=== PATIENT | female | born 1945 | race Caucasian/White ===

== ENCOUNTER 2017-05-15 14:05 | Inpatient (IN) | payer MEDICARE, BC ==
[~2017-05-15] VITALS: Ht 172.7 cm; Wt 68.0 kg
[~2017-05-15 14:05] MED LIST: AMARYL1 MG PO; ASPIR-TRIN325 MG PO; BACTRIM SINGLE S1 EA ORAL; BENADRYL25 M1 PO; DIOVAN HCT 1601 EAC1 PO; DIOVAN HCT 1601 EACH PO; GLUCOPHAGE500 MG PO; JANUVIA100 MG PO; KLOR-CON 1010 MEQ PO; LASIX40 MG PO; LEXAPRO10 MG PO; PLAVIX75 MG PO; PREDNISONE10 M1 PO; SIMVASTATIN20 MG PO; SUCRALFATE1 GM PO; VALIUM2 MG PO
[2017-05-15] MEDS ORDERED: Sodium Chloride 500ML 500 ML IV ONE (14:26)
[2017-05-15 14:30] VITALS: BP 163/71
[2017-05-15] MEDS ORDERED: Morphine Sulfate 4mg/ml Inj IVP ONE ×3 (14:30→18:15)
[2017-05-15 15:23] LABS: EOSINOPHILS % (AUTO) 1.6 % (0.0-3.0); LYMPHOCYTES % (AUTO) 17.9 % (20.0-45.0); MEAN CORPUSCULAR HEMOGLOBIN 33.6 PG (27.0-31.0); MEAN CORPUSCULAR VOLUME 102 FL (80-99); MEAN PLATELET VOLUME 6.7 FL (6.5-10.1); MONOCYTES % (AUTO) 7.2 % (1.0-10.0); NEUTROPHILS % (AUTO) 72.3 % (45.0-75.0); PLATELET COUNT 213 K/UL (150-450); RED BLOOD COUNT 3.55 M/UL (4.20-5.40); RED CELL DISTRIBUTION WIDTH 13.7 % (11.6-14.8); WHITE BLOOD COUNT 9.1 K/UL (4.8-10.8)
[2017-05-15 15:43] LABS: ANION GAP 10 mmol/L (5-15); CALCIUM 9.4 MG/DL (8.5-10.1); CARBON DIOXIDE 27 MMOL/L (21-32); CHLORIDE 105 MMOL/L (98-107); CREATININE 1.7 MG/DL (0.55-1.30); POTASSIUM 4.4 MMOL/L (3.5-5.1); SODIUM 142 MMOL/L (136-145)
[2017-05-15 15:48] LABS: ALANINE AMINOTRANSFERASE 15 U/L (12-78); ALBUMIN/GLOBULIN RATIO 1.1 (1.0-2.7); ASPARTATE AMINO TRANSFERASE 16 U/L (15-37); LIPASE 279 U/L (73-393); TOTAL PROTEIN 6.8 G/DL (6.4-8.2)
--- NOTE | 2017-05-15 19:19 | Emergency Room Report ---
History of Present Illness General Chief Complaint: Pain Source: Patient, Medical Record Present Illness HPI 72-year-old female presents ED complaining of back pain. Started this morning. Brought in by EMS. Pain states the pain is sharp, 10 out of 10 localized to right lower back radiating to the front. Denies fevers or chills. Denies chest pain or shortness of breath. Denies nausea or vomiting. No other aggravating relieving factors. Denies any other associated symptoms Allergies: Coded Allergies: AMOXICILLIN (Verified Allergy, Unknown, 05/15/17) Patient History Past Medical History: DM, HTN Past Surgical History: none, pacemaker Pertinent Family History: none Social History: Denies: smoking, alcohol use, drug use Now: No Immunizations: UTD Reviewed Nursing Documentation: PMH: Agreed, PSxH: Agreed Nursing Documentation-PMH Past Medical History: No History, Except For Hx Cardiac Problems: Yes Hx Hypertension: Yes Hx Pacemaker: Yes Hx Diabetes: Yes Hx Gastrointestinal Problems: Yes - POLYPS, PARTIAL COLON REMOVED Hx Neurological Problems: Yes - vascular problem Review of Systems All Other Systems: negative except mentioned in HPI Physical Exam Vital Signs Date Time Temp Pulse Resp B/P (MAP) Pulse Ox O2 Delivery O2 Flow Rate FiO2 05/15/17 14:04 87 20 154/72 97 Room Air 05/15/17 14:30 97.8 Sp02 EP Interpretation: reviewed, normal General Appearance: alert, GCS 15, non-toxic, mild distress Head: normocephalic, atraumatic Eyes: bilateral eye normal inspection, bilateral eye PERRL ENT: hearing grossly normal, normal pharynx, no angioedema, normal voice Neck: full range of motion, supple/symm/no masses Respiratory: chest non-tender, lungs clear, normal breath sounds, speaking full sentences Cardiovascular #1: regular rate, rhythm, no edema Cardiovascular #2: 2+ carotid (R), 2+ carotid (L), 2+ radial (R), 2+ radial (L) , 2+ dorsalis pedis (R), 2+ dorsalis pedis (L) Gastrointestinal: normal bowel sounds, non tender, soft, non-distended, no guarding, no rebound Rectal: deferred Genitourinary: normal inspection, CVA tenderness (R) Musculoskeletal: back normal, gait/station normal, normal range of motion, non- tender Neurologic: alert, oriented x3, responsive, motor strength/tone normal, sensory intact, speech normal Psychiatric: judgement/insight normal, memory normal, mood/affect normal, no suicidal/homicidal ideation Reflexes: 3+ bicep (R), 3+ bicep (L), 3+ tricep (R), 3+ tricep (L), 3+ knee (R) , 3+ knee (L) Skin: normal color, no rash, warm/dry, well hydrated Lymphatic: no adenopathy Medical Decision Making Diagnostic Impression: Primary Impression: Pyelonephritis Additional Impression: Renal insufficiency ER Course Hospital Course 72-year-old M presents to ED with R flank pain Differential diagnosis includes-appendicitis, cholecystitis, kidney stone, pyelonephritis Clinical course Patient placed on stretcher. After initial history and physical I ordered labs , IV fluids, pain medications and CT scan Labs - no leukocytosis, Cr 1.7, LFTs normal Patient unable to provide urine, even with Jiménez catheter there is no urine production CT scan shows bilateral peripnephric stranding consistent with pyelonephritsi vs passed kidney stone Patient could be experiencing urinary retention due to pyelonephritis versus kidney stone Patient continues to have pain. Antibiotics given. IV fluids given Patient will be admitted to Dr Castaneda I feel this is a highly complex case requiring extensive working including EKG/ Rhythm strip, Xray/CT/US, Blood/urine lab work, repeat exams while in ED, and administration of strong opiates/narcotics for pain control, admission to hospital or close patient follow up. Diagnosis - pyelonephritis, renal insufficiency Admitted to floor in serious condition Labs Test 05/15/17 15:00 White Blood Count 9.1 K/UL (4.8-10.8) Red Blood Count 3.55 M/UL (4.20-5.40) Hemoglobin 11.9 G/DL (12.0-16.0) Hematocrit 36.2 % (37.0-47.0) Mean Corpuscular Volume 102 FL (80-99) Mean Corpuscular Hemoglobin 33.6 PG (27.0-31.0) Mean Corpuscular Hemoglobin Concent 33.0 G/DL (32.0-36.0) Red Cell Distribution Width 13.7 % (11.6-14.8) Platelet Count 213 K/UL (150-450) Mean Platelet Volume 6.7 FL (6.5-10.1) Neutrophils (%) (Auto) 72.3 % (45.0-75.0) Lymphocytes (%) (Auto) 17.9 % (20.0-45.0) Monocytes (%) (Auto) 7.2 % (1.0-10.0) Eosinophils (%) (Auto) 1.6 % (0.0-3.0) Basophils (%) (Auto) 1.0 % (0.0-2.0) Sodium Level 142 MMOL/L (136-145) Potassium Level 4.4 MMOL/L (3.5-5.1) Chloride Level 105 MMOL/L (98-107) Carbon Dioxide Level 27 MMOL/L (21-32) Anion Gap 10 mmol/L (5-15) Blood Urea Nitrogen 20 mg/dL (7-18) Creatinine 1.7 MG/DL (0.55-1.30) Estimat Glomerular Filtration Rate mL/min (>60) Glucose Level 157 MG/DL (74-106) Calcium Level 9.4 MG/DL (8.5-10.1) Total Bilirubin 0.5 MG/DL (0.2-1.0) Aspartate Amino Transf (AST/SGOT) 16 U/L (15-37) Alanine Aminotransferase (ALT/SGPT) 15 U/L (12-78) Alkaline Phosphatase 58 U/L (46-116) Total Protein 6.8 G/DL (6.4-8.2) Albumin 3.6 G/DL (3.4-5.0) Globulin 3.2 g/dL Albumin/Globulin Ratio 1.1 (1.0-2.7) Lipase 279 U/L (73-393) CT/MRI/US Diagnostic Results CT/MRI/US Diagnostic Results : Imaging Test Ordered: CT A/P Impression Bilateral perinephric stranding, edema is nonspecific and appears mildly greater on the right which may be due to recently passed stone or infection Last Vital Signs Date Time Temp Pulse Resp B/P (MAP) Pulse Ox O2 Delivery O2 Flow Rate FiO2 05/15/17 15:10 97.8 05/15/17 14:30 80 13 163/71 98 Room Air Status: improved Disposition: ADMITTED INPATIENT Condition: Serious Referrals: NOT CHOSEN IPA/,REFERRING (PCP) EHLDER MA M.D. May 15, 2017 19:19
[2017-05-15 20:50] VITALS: BP 127/68
[2017-05-15 22:15] VITALS: BP 144/84
[2017-05-15 22:50] VITALS: BP 144/84
[2017-05-16] MEDS: Morphine Sulfate 2mg/ml Inj IVP PRN ×3 (00:54→16:34)
[2017-05-16 04:00] VITALS: BP 148/66
[2017-05-16] MEDS ORDERED: Sucralfate 1gm tab ORAL SCH (06:30)
[2017-05-16 07:26] LABS: BASOPHILS % (AUTO) 0.7 % (0.0-2.0); EOSINOPHILS % (AUTO) 0.9 % (0.0-3.0); LYMPHOCYTES % (AUTO) 16.6 % (20.0-45.0); MEAN CORPUSCULAR HEMOGLOBIN 34.5 PG (27.0-31.0); MEAN CORPUSCULAR HGB CONC 33.6 G/DL (32.0-36.0); MEAN CORPUSCULAR VOLUME 103 FL (80-99); MEAN PLATELET VOLUME 7.3 FL (6.5-10.1); MONOCYTES % (AUTO) 7.6 % (1.0-10.0); NEUTROPHILS % (AUTO) 74.3 % (45.0-75.0); PLATELET COUNT 231 K/UL (150-450); RED CELL DISTRIBUTION WIDTH 13.6 % (11.6-14.8); WHITE BLOOD COUNT 9.3 K/UL (4.8-10.8)
[2017-05-16 07:40] LABS: ALANINE AMINOTRANSFERASE 16 U/L (12-78); ALBUMIN/GLOBULIN RATIO 1.1 (1.0-2.7); ANION GAP 6 mmol/L (5-15); ASPARTATE AMINO TRANSFERASE 15 U/L (15-37); CALCIUM 9.4 MG/DL (8.5-10.1); CARBON DIOXIDE 30 MMOL/L (21-32); CHLORIDE 107 MMOL/L (98-107); CHOLESTEROL 164 MG/DL (< 200); CHOLESTEROL/HDL RATIO 3.8 (3.3-4.4); CREATININE 1.5 MG/DL (0.55-1.30); POTASSIUM 5.5 MMOL/L (3.5-5.1); SODIUM 143 MMOL/L (136-145); TOTAL PROTEIN 6.5 G/DL (6.4-8.2)
[2017-05-16 08:00] VITALS: BP 123/76
[2017-05-16] MEDS: Furosemide 40mg tab ORAL SCH (08:54)
[2017-05-16] MEDS: Aspirin EC 325mg tab ORAL SCH (08:54)
[2017-05-16] MEDS ORDERED: metFORMIN 500mg tab ORAL SCH (09:00)
--- NOTE | 2017-05-16 09:13 | Diagnostic Imaging Report ---
Indication: Abdominal pain, right flank pain Technique: Spiral acquisitions obtained through the abdomen and pelvis. No oral contrast utilized, per emergency room physician request No IV contrast utilized, per referring physician request. Multiplanar reconstructions were generated. Total dose length product 954 mGycm. CTDIvol(s) 18 mGy. Dose reduction achieved using automated exposure control Comparison: 11/19/2006 Findings: There is again demonstrated colonic diverticulosis, perhaps more extensive than previously. No evidence of diverticulitis. There is evidence of prior ascending colectomy and ileocolic anastomosis. No small bowel distention. No free or loculated intraperitoneal air or fluid is evident. The distal esophagus, stomach, duodenum are unremarkable. Lack of IV contrast limits assessment of the solid organs. Subcentimeter low-attenuation lesion is seen within segment 5 of the liver near the tip, also evident previously and unchanged. The gallbladder, bile ducts are unremarkable. Calcifications are seen in the pancreatic head and uncinate process are more abundant than previously. There is an accessory splenule. The spleen itself is unremarkable. The adrenals are unremarkable. Both kidneys demonstrate multiple calcifications within the renal sinus which are probably arterial. Prominent bilateral perinephric fat stranding is unchanged. There is very mild saccular ectasia of the infrarenal abdominal aorta, but no enrike aneurysmal dilatation. No pelvic mass or adenopathy. No retroperitoneal or mesenteric mass or adenopathy. Pacemaker wires are seen within the heart. The heart is upper limits of normal in size. Bronchial wall thickening is seen at both lung bases. There are are degenerative changes of the lumbar spine. Impression: Bilateral perinephric fat stranding, appearing unchanged from prior study of 2006 and presumably baseline for this patient. Bilateral renal calcifications are most likely arterial No acute abnormality Pancreatic calcifications, more abundant than on the prior exam. Most likely on the basis of progressive chronic calcifying pancreatitis, but consider pancreatic protocol CT or MRI to rule out underlying neoplasm Prior right hemicolectomy Colonic diverticulosis. No evidence of diverticulitis Subcentimeter right lobe liver lesion, too small to characterize but unchanged from 11/19/2006, presumably benign simple cysts or bile hamartomas Incidental findings as noted, including basilar bronchial wall thickening, degenerative changes of the lumbar spine, pacemaker, accessory splenule This agrees with the preliminary interpretation provided overnight by [facility]. This agrees with the preliminary interpretation provided overnight by [facility] service. The CT scanner at [facility] is accredited by the [employer] and the scans are performed using protocols designed to limit radiation exposure to as low as reasonably achievable to attain images of sufficient resolution adequate for diagnostic evaluation.
[2017-05-16 12:00] VITALS: BP 149/81
--- NOTE | 2017-05-16 12:49 | Consultation ---
History of Present Illness General Date patient seen: May 16, 2017 Time patient seen: 12:48 Chief Complaint: Pain Present Illness HPI 72 y/o F with hx of DM2, HTN, s/p PPM, colon polyps s/p hemicolectomy is brought to ED by EMS on 05/15 with back sharp, 10/10 R lower back pain radiating to the front Deneis f/c, SOB, N/v In ED found to have NOA, no urine produced even with carias cath insertion. CT scan showed b/l perinephric stranding Patient afebrile, no leukocytosis. Allergies: Coded Allergies: AMOXICILLIN (Verified Allergy, Unknown, 05/15/17) Medication History Scheduled Aspirin (Aspir-Dai), 325 MG PO DAILY, (Reported) Clopidogrel Bisulfate* (Plavix*), 75 MG PO DAILY, (Reported) Diphenhydramine Hcl (Benadryl), 25 MG PO Q12HR Escitalopram Oxalate* (Lexapro*), 10 MG PO DAILY, (Reported) Furosemide* (Lasix*), 40 MG PO DAILY, (Reported) Glimepiride* (Amaryl*), 1 MG PO ACBREAKFAST, (Reported) Metformin Hcl* (Glucophage*), 1,000 MG PO BID, (Reported) Potassium Chloride (Klor-Con 10), 10 MEQ PO DAILY, (Reported) Prednisone (Prednisone), 20 MG PO Q12HR Simvastatin (Zocor), 20 MG PO QHS, (Reported) Sitagliptin (Januvia), 100 MG PO DAILY, (Reported) Sucralfate* (Carafate*), 1 GM PO BID, (Reported) Trimethoprim/Sulfamethoxazole (Bactrim 400-80 mg Tablet), 1 TAB ORAL TWICE A DAY Valsartan/Hydrochlorothiazide 160-12.5MG (Diovan Hct 160-12.5 Mg Tab), 1 EACH PO DAILY, (Reported) Scheduled PRN Diazepam* (Valium*), 2 MG PO TID PRN, (Reported) Miscellaneous Medications Valsartan/Hydrochlorothiazide 160-25MG (Diovan Hct 160-25 Mg Tablet), 1 EACH PO, (Reported) Patient History Healthcare decision maker Resuscitation status Full Code Advanced Directive on File No Patient History Narrative Pmhx: as above SHx: Denies: smoking, alcohol use, drug use Fhx non contributory Review of Systems All Other Systems: negative except mentioned in HPI Physical Exam Physical Exam Narrative General Appearance: alert non-toxic, mild distress HEENT:normocephalic, atraumatic bilateral eye PERRL, normal pharynx Neck: full range of motion, supple/symm/no masses Respiratory: chest non-tender, lungs clear, normal breath sounds, speaking full sentences Cardiovascular : regular rate, rhythm, no edema Gastrointestinal: normal bowel sounds, non tender, soft, non-distended, no guarding, no rebound. TTP in R waist area Genitourinary: normal inspection, CVA tenderness (R); Musculoskeletal: back normal, gait/station normal, normal range of motion, non- tender Skin: normal color, no rash, warm/dry, well hydrated Last 24 Hour Vital Signs Date Time Temp Pulse Resp B/P (MAP) Pulse Ox O2 Delivery O2 Flow Rate FiO2 05/16/17 09:35 98.6 05/16/17 08:00 98.9 93 18 123/76 97 Room Air 05/16/17 04:00 98.6 79 20 148/66 93 Room Air 05/15/17 22:50 97.3 87 20 144/84 92 Room Air 05/15/17 22:15 97.3 144 20 144/84 92 Room Air 05/15/17 21:33 98.1 79 22 127/68 98 Room Air 05/15/17 20:50 98.1 79 22 127/68 98 Room Air 05/15/17 19:30 97.8 05/15/17 17:10 97.8 05/15/17 15:10 97.8 05/15/17 14:30 97.8 80 13 163/71 98 Room Air 05/15/17 14:04 87 20 154/72 97 Room Air Laboratory Tests Test 05/15/17 15:00 05/16/17 05:10 White Blood Count 9.1 K/UL (4.8-10.8) 9.3 K/UL (4.8-10.8) Red Blood Count 3.55 M/UL (4.20-5.40) L 3.40 M/UL (4.20-5.40) L Hemoglobin 11.9 G/DL (12.0-16.0) L 11.8 G/DL (12.0-16.0) L Hematocrit 36.2 % (37.0-47.0) L 35.0 % (37.0-47.0) L Mean Corpuscular Volume 102 FL (80-99) H 103 FL (80-99) H Mean Corpuscular Hemoglobin 33.6 PG (27.0-31.0) H 34.5 PG (27.0-31.0) H Mean Corpuscular Hemoglobin Concent 33.0 G/DL (32.0-36.0) 33.6 G/DL (32.0-36.0) Red Cell Distribution Width 13.7 % (11.6-14.8) 13.6 % (11.6-14.8) Platelet Count 213 K/UL (150-450) 231 K/UL (150-450) Mean Platelet Volume 6.7 FL (6.5-10.1) 7.3 FL (6.5-10.1) Neutrophils (%) (Auto) 72.3 % (45.0-75.0) 74.3 % (45.0-75.0) Lymphocytes (%) (Auto) 17.9 % (20.0-45.0) L 16.6 % (20.0-45.0) L Monocytes (%) (Auto) 7.2 % (1.0-10.0) 7.6 % (1.0-10.0) Eosinophils (%) (Auto) 1.6 % (0.0-3.0) 0.9 % (0.0-3.0) Basophils (%) (Auto) 1.0 % (0.0-2.0) 0.7 % (0.0-2.0) Sodium Level 142 MMOL/L (136-145) 143 MMOL/L (136-145) Potassium Level 4.4 MMOL/L (3.5-5.1) 5.5 MMOL/L (3.5-5.1) H Chloride Level 105 MMOL/L (98-107) 107 MMOL/L (98-107) Carbon Dioxide Level 27 MMOL/L (21-32) 30 MMOL/L (21-32) Anion Gap 10 mmol/L (5-15) 6 mmol/L (5-15) Blood Urea Nitrogen 20 mg/dL (7-18) H 18 mg/dL (7-18) Creatinine 1.7 MG/DL (0.55-1.30) H 1.5 MG/DL (0.55-1.30) H Estimat Glomerular Filtration Rate mL/min (>60) mL/min (>60) Glucose Level 157 MG/DL (74-106) H 88 MG/DL (74-106) Calcium Level 9.4 MG/DL (8.5-10.1) 9.4 MG/DL (8.5-10.1) Total Bilirubin 0.5 MG/DL (0.2-1.0) 0.6 MG/DL (0.2-1.0) Aspartate Amino Transf (AST/SGOT) 16 U/L (15-37) 15 U/L (15-37) Alanine Aminotransferase (ALT/SGPT) 15 U/L (12-78) 16 U/L (12-78) Alkaline Phosphatase 58 U/L (46-116) 54 U/L (46-116) Total Protein 6.8 G/DL (6.4-8.2) 6.5 G/DL (6.4-8.2) Albumin 3.6 G/DL (3.4-5.0) 3.4 G/DL (3.4-5.0) Globulin 3.2 g/dL 3.1 g/dL Albumin/Globulin Ratio 1.1 (1.0-2.7) 1.1 (1.0-2.7) Lipase 279 U/L (73-393) Hemoglobin A1c 7.5 % (4.3-6.0) H Triglycerides Level 162 MG/DL (30-150) H Cholesterol Level 164 MG/DL (< 200) LDL Cholesterol 93 mg/dL (<100) HDL Cholesterol 43 MG/DL (40-60) Cholesterol/HDL Ratio 3.8 (3.3-4.4) Height (Feet): 5 Height (Inches): 8.00 Weight (Pounds): 150 Medications Current Medications Medications (Trade) Dose Ordered Sig/Zachary Route PRN Reason Start Time Stop Time Status Last Admin Dose Admin Acetaminophen (Tylenol) 650 mg Q4H PRN ORAL Mild Pain/Temp > 100.5 05/15/17 23:45 06/14/17 23:44 Aspirin (Ecotrin) 325 mg DAILY ORAL 05/16/17 09:00 06/15/17 08:59 05/16/17 08:54 Clopidogrel Bisulfate (Plavix) 75 mg DAILY ORAL 05/16/17 09:00 06/15/17 08:59 05/16/17 08:55 Dextrose (Dextrose 50%) STAT PRN IV Hypoglycemia 05/15/17 23:45 06/14/17 23:44 Diazepam (Valium) 2 mg TID PRN ORAL For Anxiety 05/15/17 23:15 05/22/17 23:14 Diphenhydramine HCl (Benadryl) 25 mg Q6H PRN ORAL Itching 05/16/17 00:00 06/15/17 00:00 Escitalopram Oxalate (Lexapro) 10 mg QHS ORAL 05/16/17 21:00 06/15/17 20:59 Furosemide (Lasix) 40 mg DAILY ORAL 05/16/17 09:00 06/15/17 08:59 05/16/17 08:54 Insulin Aspart (NovoLOG) BEFORE MEALS AND HS SUBQ 05/16/17 06:30 06/15/17 06:29 Morphine Sulfate (Morphine Sulfate) 2 mg Q8H PRN IVP For Pain 05/15/17 23:45 05/22/17 23:44 05/16/17 09:06 Potassium Chloride (K-Dur) 10 meq DAILY ORAL 05/16/17 09:00 06/15/17 08:59 Prednisone (predniSONE) 10 mg DAILY ORAL 05/16/17 09:00 06/15/17 08:59 05/16/17 08:55 Sitagliptin Phosphate (Januvia) 100 mg DAILY ORAL 05/16/17 09:00 06/15/17 08:59 Sucralfate (Carafate) 1 gm BIAC ORAL 05/16/17 06:30 06/15/17 06:29 Assessment/Plan Assessment/Plan Abx: Levaquin 05/15-05/16 Assesment: R flank pain- chronic perinephric stranding argues agains acute pyelonephritis- ?musculoskeletal -CT abd/p: Bilateral perinephric fat stranding, appearing unchanged from prior study of 2006 and presumably baseline for this patient. Bilateral renal calcifications are most likely arterial. No acute abnormality. Pancreatic calcifications, more abundant than on the prior exam. Most likely on the basis of progressive chronic calcifying pancreatitis, but consider pancreatic protocol CT or MRI to rule out underlying neoplasm. Prior right hemicolectomy. Colonic diverticulosis. No evidence of diverticulitis. 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 Incidental findings as noted, including basilar bronchial wall thickening, degenerative changes of the lumbar spine, pacemaker, accessory splenule Afebrile, no leukocytosis NOA with urinary retention DM2, HTN, s/p PPM, colon polyps s/p hemicolectomy Plan -S/p 2 doses of Levaquin. Patient afebrile, no leukocytosis and Kidney changes on CT are chronic, lower suspicion for acute infectious process. Can monitor off abx unless febrile, leukocytosis and/or concerning findings of infection on contrast CT -obtain u/a with reflex to Ucx when possible -f/u contrast CT abd/p -Uro evaluation -f/u cx -Monitor CBC/BMP, temperatures Thank you for this consultation. Will continue to follow along with you. Discussed with GISELE. Amara Valadez M.D. May 16, 2017 12:49
--- NOTE | 2017-05-16 13:32 | General Progress Note ---
Assessment/Plan Status: unchanged Assessment/Plan 1- Abdominal pain, Ischemic mesenteric?, 2- Diverticulosis 3- ARF 4- Pyelonephritis?! 5. HyperKalemia 6. Abnormal Pancreatic finding in imaging - Defer additional imaging 7. Smoking , > 40 PPY Plan: Nephro, Gi, Vascular, ID and Urology are consulted source of pain not clear, pending current workup Subjective ROS Limited/Unobtainable: No Gastrointestinal/Abdominal: Reports: abdominal pain Allergies: Coded Allergies: AMOXICILLIN (Verified Allergy, Unknown, 05/15/17) Objective Last 24 Hour Vital Signs Date Time Temp Pulse Resp B/P (MAP) Pulse Ox O2 Delivery O2 Flow Rate FiO2 05/16/17 09:35 98.6 05/16/17 08:00 98.9 93 18 123/76 97 Room Air 05/16/17 04:00 98.6 79 20 148/66 93 Room Air 05/15/17 22:50 97.3 87 20 144/84 92 Room Air 05/15/17 22:15 97.3 144 20 144/84 92 Room Air 05/15/17 21:33 98.1 79 22 127/68 98 Room Air 05/15/17 20:50 98.1 79 22 127/68 98 Room Air 05/15/17 19:30 97.8 05/15/17 17:10 97.8 05/15/17 15:10 97.8 05/15/17 14:30 97.8 80 13 163/71 98 Room Air 05/15/17 14:04 87 20 154/72 97 Room Air Laboratory Tests 05/15/17 15:00: White Blood Count 9.1, Red Blood Count 3.55L, Hemoglobin 11.9L, Hematocrit 36.2L , Mean Corpuscular Volume 102H, Mean Corpuscular Hemoglobin 33.6H, Mean Corpuscular Hemoglobin Concent 33.0, Red Cell Distribution Width 13.7, Platelet Count 213, Mean Platelet Volume 6.7, Neutrophils (%) (Auto) 72.3, Lymphocytes (% ) (Auto) 17.9L, Monocytes (%) (Auto) 7.2, Eosinophils (%) (Auto) 1.6, Basophils (%) (Auto) 1.0, Sodium Level 142, Potassium Level 4.4, Chloride Level 105, Carbon Dioxide Level 27, Anion Gap 10, Blood Urea Nitrogen 20H, Creatinine 1.7H , Estimat Glomerular Filtration Rate , Glucose Level 157H, Calcium Level 9.4, Total Bilirubin 0.5, Aspartate Amino Transf (AST/SGOT) 16, Alanine Aminotransferase (ALT/SGPT) 15, Alkaline Phosphatase 58, Total Protein 6.8, Albumin 3.6, Globulin 3.2, Albumin/Globulin Ratio 1.1, Lipase 279 05/16/17 05:10: White Blood Count 9.3, Red Blood Count 3.40L, Hemoglobin 11.8L, Hematocrit 35.0L , Mean Corpuscular Volume 103H, Mean Corpuscular Hemoglobin 34.5H, Mean Corpuscular Hemoglobin Concent 33.6, Red Cell Distribution Width 13.6, Platelet Count 231, Mean Platelet Volume 7.3, Neutrophils (%) (Auto) 74.3, Lymphocytes (% ) (Auto) 16.6L, Monocytes (%) (Auto) 7.6, Eosinophils (%) (Auto) 0.9, Basophils (%) (Auto) 0.7, Sodium Level 143, Potassium Level 5.5H, Chloride Level 107, Carbon Dioxide Level 30, Anion Gap 6, Blood Urea Nitrogen 18, Creatinine 1.5H, Estimat Glomerular Filtration Rate , Glucose Level 88, Calcium Level 9.4, Total Bilirubin 0.6, Aspartate Amino Transf (AST/SGOT) 15, Alanine Aminotransferase ( ALT/SGPT) 16, Alkaline Phosphatase 54, Total Protein 6.5, Albumin 3.4, Globulin 3.1, Albumin/Globulin Ratio 1.1, Hemoglobin A1c 7.5H, Triglycerides Level 162H, Cholesterol Level 164, LDL Cholesterol 93, HDL Cholesterol 43, Cholesterol/HDL Ratio 3.8 Height (Feet): 5 Height (Inches): 8.00 Weight (Pounds): 150 General Appearance: no apparent distress EENT: PERRL/EOMI Neck: supple Cardiovascular: normal rate Respiratory/Chest: lungs clear Abdomen: soft Extremities: non-tender Neurologic: pulverizer feeder II-XII grossly normal, other - anxious Adri Castaneda MD May 16, 2017 13:32
--- NOTE | 2017-05-16 13:33 | History & Physical ---
History and Physical History & Physicial completed and Dictated. Comment: time of dictation does not reflect time of encounter Adri Castaneda MD May 16, 2017 13:33
--- NOTE | 2017-05-16 14:54 | Consultation ---
Consult Note Consult Note asked to eval for renal failure and hyperkalemia 72-year-old female presents ED complaining of back pain. Started this morning. Brought in by EMS. Pain states the pain is sharp, 10 out of 10 localized to right lower back radiating to the front. Denies fevers or chills. Denies chest pain or shortness of breath. Denies nausea or vomiting. No other aggravating relieving factors. Denies any other associated symptoms Allergies: AMOXICILLIN (Verified Allergy, Unknown, 05/15/17) Past Medical History: DM, HTN Past Surgical History: none, pacemaker Past Medical History: No History, Except For Hx Cardiac Problems: Yes Hx Hypertension: Yes Hx Pacemaker: Yes Hx Diabetes: Yes Hx Gastrointestinal Problems: Yes - POLYPS, PARTIAL COLON REMOVED Hx Neurological Problems: Yes - vascular problem Patient had CABGs and Mitral valve surgery Meds: Prednisone - HCTZ- Volsartan- Bactrim- Amaryl interviewed, examined- data reviewed Assessment/Plan Renal failure- ( bactrim- DM , HTN .... No Urine yet ! DM Pacer CABGs MV surgery Over weight here with left flank pain ? acute papillary necrosis ?? Anemia Plan: UA Urine c/s Optimize cardiac status 2 D echo Kidney JACQUELINE avoid nephrotoxics Anemia DIPIKA Ralph May 16, 2017 14:54
[2017-05-16] MEDS ORDERED: Norco 5mg/325mg tab ORAL PRN (15:30)
[2017-05-16 16:00] VITALS: BP 149/73
--- NOTE | 2017-05-16 16:00 | History and Physical Report ---
DATE OF ADMISSION: 05/15/2017 SOURCE OF INFORMATION: The patient and EMR. HISTORY OF PRESENT ILLNESS: The patient is a 72-year-old female. The patient presented with increasing pain in the abdomen localizing to the flanks. The patient denies any fever or chills. The patient denies any nausea or vomitus. The patient is independent at home for taking care of her these advanced like settings. At the time of the evaluation, the patient's sister was at the bedside, which helped me to obtain a better source of information. PAST MEDICAL HISTORY: Coronary artery disease (not verified), anxiety/depression, hypertension, diabetes, and hyperlipidemia. PAST SURGICAL HISTORY: Not verified. HOME MEDICATIONS: Including, but not limited to aspirin, Plavix, diltiazem, Lexapro, Lasix, Amaryl, Diovan, Glucophage, potassium chloride, prednisone, simvastatin, and sucralfate. ALLERGIES: Amoxicillin. SOCIAL HISTORY: Positive for history of smoking for more than 30 years, more than 30-40 pack per year. Negative for history of illicit drug abuse or alcohol abuse. FAMILY HISTORY: Reviewed and noncontributory. PHYSICAL EXAMINATION: VITAL SIGNS: Blood pressure 150/70, temperature 98.2 degrees, pulse oximetry 98% on room air, and respiratory rate 18. HEAD AND NECK: Atraumatic and normocephalic. CHEST: Diffuse bronchial breathing sounds. HEART: S1 and S2. Regular rate and rhythm. ABDOMEN: Soft. No gross organomegaly. NEUROLOGIC: The patient is awake, alert, and oriented x3. The patient is anxious. MUSCULOSKELETAL: No gross lateralized motor deficit. IMAGING: Abdominal and pelvic CT scan shows bilateral perinephric fat stranding similar to the previous encounter. Bilateral renal calcification, positive for pancreatic calcification, diverticulosis. LABORATORY DATA: Lab results dated 05/15/2017 shows WBC 9.1, hemoglobin 11.9, and platelets 213,000. Sodium 142, potassium 4.4, BUN 20, and creatinine 1.7. A1c 7.5. Lipase 279. ASSESSMENT: 1. Acute on chronic abdominal pain. Differential diagnosis are including, but not limited to ischemic mesentery or diverticulitis. 2. Acute on chronic renal failure (age indeterminate). 3. Anemia. 4. History of smoking more than 40 pack per year. 5. Diabetes type 2, fairly controlled with A1c of 7.5. 6. Hyperlipidemia. 7. Hypertension. 8. Coronary artery disease (is not verified). 9. Gastrointestinal and deep vein thrombosis prophylaxis. PLAN OF CARE: We will continue with the general medical surgery admission. I would hold the antibiotic at this time. Pending the evaluation by Infectious Disease specialist. Continue with hydration. Continue with supportive management. We will consult Nephrology, GI, and Vascular surgeon. Adri Castaneda M.D. DR: Alva JOB#: [id number] CC:
--- NOTE | 2017-05-16 16:19 | GI Initial Consult Note ---
Genna David N.PLala 05/16/17 1619: History of Present Illness General Date patient seen: May 16, 2017 Time patient seen: 16:08 Reason for Hospitalization: Pain Referring physician: [facility] Reason for Consultation: ABDOMINAL PAIN Present Illness HPI 72-year-old female presents ED complaining of back pain. Started this morning. Brought in by EMS. Pain states the pain is sharp, 10 out of 10 localized to right lower back radiating to the front. Denies fevers or chills. Denies chest pain or shortness of breath. Denies nausea or vomiting. No other aggravating relieving factors. Denies any other associated symptoms GI consulted for abdominal pain unknown etiology. HPI as noted above. Pt seen on floor, awake A&Ox4 NAD with no active s/sx of N/V/D. RUQ abdominal pain, tender to touch. Has improved, but still present. Abdomen is soft, normal bowel sounds all quad, no radiation, no tympany. Denies N/V or constipation or diarrhea. CT AP shows no evidence of diverticulitis. There is evidence of prior ascending colectomy and ileocolic anastomosis. No small bowel distention. No free or loculated intraperitoneal air or fluid is evident. The distal esophagus, stomach , duodenum are unremarkable. Last EGD/colonoscopy was performed 9 years ago. Labs show macrocytic hyperchromic anemia, elevated lactic acid and creatinine levels. Home Meds Active Scripts Trimethoprim/Sulfamethoxazole (Bactrim 400-80 mg Tablet) 1 Ea Tab, 1 TAB ORAL TWICE A DAY, #14 TAB 0 Refills Prov:LEEROY DAVID MD 07/06/13 Prednisone (PREDNISONE) 10 Mg Tab.ds.pk, 20 MG PO Q12HR, #6 0 Refills Prov:CATALINO WESLEY D.O. 03/08/12 Diphenhydramine Hcl (BENADRYL) 25 Mg Strip, 25 MG PO Q12HR, #20 0 Refills Prov:CATALINO WESLEY D.O. 03/08/12 Reported Medications Diazepam* (VALIUM*) 2 Mg Tablet, 2 MG PO TID Y, #21 TAB 03/08/12 Glimepiride* (AMARYL*) 1 Mg Tablet, 1 MG PO ACBREAKFAST, #10 TAB Take 1 tablet by mouth every day before breakfast. 03/08/12 Aspirin (ASPIR-ELLE) 325 Mg Tablet.dr, 325 MG PO DAILY 03/08/12 Escitalopram Oxalate* (LEXAPRO*) 10 Mg Tablet, 10 MG PO DAILY, #10 TAB Take 1 tablet by mouth every day. 03/08/12 Simvastatin (ZOCOR) 20 Mg Tablet, 20 MG PO QHS 03/08/12 Valsartan/Hydrochlorothiazide 160-25MG (DIOVAN HCT 160-25 MG TABLET) 1 Each Tablet, 1 EACH PO 03/08/12 Valsartan/Hydrochlorothiazide 160-12.5MG (DIOVAN HCT 160-12.5 MG TAB) 1 Each Tablet, 1 EACH PO DAILY 03/08/12 Metformin Hcl* (GLUCOPHAGE*) 500 Mg Tablet, 1000 MG PO BID, #10 TAB Take 1 tablet by mouth every day. 03/08/12 Sucralfate* (CARAFATE*) 1 Gm Tablet, 1 GM PO BID 03/08/12 Sitagliptin (Januvia) 100 Mg Tab, 100 MG PO DAILY 03/08/12 Potassium Chloride (KLOR-CON 10) 10 Meq Tablet.er, 10 MEQ PO DAILY 03/08/12 Clopidogrel Bisulfate* (PLAVIX*) 75 Mg Tablet, 75 MG PO DAILY, #10 TAB Take 1 tablet by mouth daily. 03/08/12 Furosemide* (LASIX*) 40 Mg Tablet, 40 MG PO DAILY, #10 TAB Take 1 tablet by mouth every day. 03/08/12 Med list reviewed/reconciled: Yes Allergies: Coded Allergies: AMOXICILLIN (Verified Allergy, Unknown, 05/15/17) Patient History History Provided By: Patient, Medical Record PM Narrative Past Medical History: DM, HTN Past Surgical History: none, pacemaker Pertinent Family History: none Social History: Denies: smoking, alcohol use, drug use Now: No Immunizations: UTD Reviewed Nursing Documentation: PMH: Agreed, PSxH: Agreed Nursing Documentation-PM Past Medical History: No History, Except For Hx Cardiac Problems: Yes Hx Hypertension: Yes Hx Pacemaker: Yes Hx Diabetes: Yes Hx Gastrointestinal Problems: Yes - POLYPS, PARTIAL COLON REMOVED Hx Neurological Problems: Yes - vascular problem Social History: Denies: smoking, alcohol use, drug use, other Review of Systems All Other Systems: negative except mentioned in HPI Physical Exam Vital Signs Date Time Temp Pulse Resp B/P (MAP) Pulse Ox O2 Delivery O2 Flow Rate FiO2 05/15/17 14:04 87 20 154/72 97 Room Air 05/15/17 14:30 97.8 Sp02 EP Interpretation: reviewed, normal Labs Laboratory Tests Test 05/16/17 05:10 White Blood Count 9.3 K/UL (4.8-10.8) Red Blood Count 3.40 M/UL (4.20-5.40) L Hemoglobin 11.8 G/DL (12.0-16.0) L Hematocrit 35.0 % (37.0-47.0) L Mean Corpuscular Volume 103 FL (80-99) H Mean Corpuscular Hemoglobin 34.5 PG (27.0-31.0) H Mean Corpuscular Hemoglobin Concent 33.6 G/DL (32.0-36.0) Red Cell Distribution Width 13.6 % (11.6-14.8) Platelet Count 231 K/UL (150-450) Mean Platelet Volume 7.3 FL (6.5-10.1) Neutrophils (%) (Auto) 74.3 % (45.0-75.0) Lymphocytes (%) (Auto) 16.6 % (20.0-45.0) L Monocytes (%) (Auto) 7.6 % (1.0-10.0) Eosinophils (%) (Auto) 0.9 % (0.0-3.0) Basophils (%) (Auto) 0.7 % (0.0-2.0) Sodium Level 143 MMOL/L (136-145) Potassium Level 5.5 MMOL/L (3.5-5.1) H Chloride Level 107 MMOL/L (98-107) Carbon Dioxide Level 30 MMOL/L (21-32) Anion Gap 6 mmol/L (5-15) Blood Urea Nitrogen 18 mg/dL (7-18) Creatinine 1.5 MG/DL (0.55-1.30) H Estimat Glomerular Filtration Rate mL/min (>60) Glucose Level 88 MG/DL (74-106) Hemoglobin A1c 7.5 % (4.3-6.0) H Calcium Level 9.4 MG/DL (8.5-10.1) Total Bilirubin 0.6 MG/DL (0.2-1.0) Aspartate Amino Transf (AST/SGOT) 15 U/L (15-37) Alanine Aminotransferase (ALT/SGPT) 16 U/L (12-78) Alkaline Phosphatase 54 U/L (46-116) Total Protein 6.5 G/DL (6.4-8.2) Albumin 3.4 G/DL (3.4-5.0) Globulin 3.1 g/dL Albumin/Globulin Ratio 1.1 (1.0-2.7) Triglycerides Level 162 MG/DL (30-150) H Cholesterol Level 164 MG/DL (< 200) LDL Cholesterol 93 mg/dL (<100) HDL Cholesterol 43 MG/DL (40-60) Cholesterol/HDL Ratio 3.8 (3.3-4.4) General Appearance: well appearing, no apparent distress, alert Head: normocephalic EENT: PERRL/EOMI, normal ENT inspection Neck: supple Respiratory: normal breath sounds, no respiratory distress Cardiovascular: normal rate Gastrointestinal: normal inspection, soft, normal bowel sounds, non-distended, tenderness - RUQ Rectal: deferred Musculoskeletal: normal inspection, back normal Neurologic: normal inspection, alert, oriented x3, responsive Psychiatric: normal inspection, judgement/insight normal, memory normal Skin: normal inspection, normal color, no rash, warm/dry, palpation normal, well hydrated Lymphatic: normal inspection, no adenopathy Current Medications Current Medications Medications (Trade) Dose Ordered Sig/Zachary Route PRN Reason Start Time Stop Time Status Last Admin Dose Admin Acetaminophen (Tylenol) 650 mg Q4H PRN ORAL Mild Pain/Temp > 100.5 05/15/17 23:45 06/14/17 23:44 05/16/17 15:35 Acetaminophen/ Hydrocodone Bitart ([place] 5/325) 1 tab Q4H PRN ORAL Moderate Pain (Pain Scale 4-6) 05/16/17 15:30 05/23/17 15:29 Aspirin (Ecotrin) 325 mg DAILY ORAL 05/16/17 09:00 06/15/17 08:59 05/16/17 08:54 Clopidogrel Bisulfate (Plavix) 75 mg DAILY ORAL 05/16/17 09:00 06/15/17 08:59 05/16/17 08:55 Dextrose (Dextrose 50%) STAT PRN IV Hypoglycemia 05/15/17 23:45 06/14/17 23:44 Diazepam (Valium) 2 mg TID PRN ORAL For Anxiety 05/15/17 23:15 05/22/17 23:14 Diphenhydramine HCl (Benadryl) 25 mg Q6H PRN ORAL Itching 05/16/17 00:00 06/15/17 00:00 Escitalopram Oxalate (Lexapro) 10 mg QHS ORAL 05/16/17 21:00 06/15/17 20:59 Furosemide (Lasix) 40 mg DAILY ORAL 05/16/17 09:00 06/15/17 08:59 05/16/17 08:54 Insulin Aspart (NovoLOG) BEFORE MEALS AND HS SUBQ 05/16/17 06:30 06/15/17 06:29 Lansoprazole (Prevacid) 30 mg DAILY ORAL 05/16/17 15:45 06/15/17 15:44 Losartan Potassium (Cozaar) 25 mg EVERY 12 HOURS ORAL 05/16/17 21:00 06/15/17 20:59 Morphine Sulfate (Morphine Sulfate) 2 mg Q6H PRN IVP Severe Pain (Scale 7-10) 05/16/17 15:30 05/23/17 15:29 Sucralfate (Carafate) 1 gm BIAC ORAL 05/16/17 06:30 06/15/17 06:29 GI: Plan Problems: (1) Anemia (2) Abdominal pain (3) History of colectomy Plan CT AP reviewed >> - Bilateral perinephric fat stranding, appearing unchanged from prior study of 2006 and presumably baseline for this patient. Bilateral renal calcifications are most likely arterial - No acute abnormality - Pancreatic calcifications, more abundant than on the prior exam. Most likely on the basis of progressive chronic calcifying pancreatitis, but consider pancreatic protocol CT or MRI to rule out underlying neoplasm - Prior right hemicolectomy - Colonic diverticulosis. No evidence of diverticulitis - Subcentimeter right lobe liver lesion, too small to characterize but unchanged from 11/19/2006, presumably benign simple cysts or bile hamartomas. Recommendations: pain is most likely renal >> fu nephro recs fu renal US anemia work up, fu B12/folate OB stool r/o GI bleed monitor H&H, prn transfusions bowel regime >> colace ok to adv ADA diet pain mgmt zofran prn dc Carafate, cont PPI ordered CA19-9 fu labs outpatient EGD/colonoscopy (patient on Plavix, must be held min 72 hours prior any GI procedure) Discussed with Dr. Pelletier. Thank you for this patient referral, we will follow. SCOTTIEARNAUDZayraABY 05/18/17 1012: History of Present Illness General Reason for Hospitalization: Pain Present Illness Home Meds Active Scripts Trimethoprim/Sulfamethoxazole (Bactrim 400-80 mg Tablet) 1 Ea Tab, 1 TAB ORAL TWICE A DAY, #14 TAB 0 Refills Prov:LEEROY DAVID MD 07/06/13 Prednisone (PREDNISONE) 10 Mg Tab.ds.pk, 20 MG PO Q12HR, #6 0 Refills Prov:CATALINO WESLEY D.OLala 03/08/12 Diphenhydramine Hcl (BENADRYL) 25 Mg Strip, 25 MG PO Q12HR, #20 0 Refills Prov:CATALINO WESLEY D.O. 03/08/12 Reported Medications Diazepam* (VALIUM*) 2 Mg Tablet, 2 MG PO TID Y, #21 TAB 03/08/12 Glimepiride* (AMARYL*) 1 Mg Tablet, 1 MG PO ACBREAKFAST, #10 TAB Take 1 tablet by mouth every day before breakfast. 03/08/12 Aspirin (ASPIR-ELLE) 325 Mg Tablet.dr, 325 MG PO DAILY 03/08/12 Escitalopram Oxalate* (LEXAPRO*) 10 Mg Tablet, 10 MG PO DAILY, #10 TAB Take 1 tablet by mouth every day. 03/08/12 Simvastatin (ZOCOR) 20 Mg Tablet, 20 MG PO QHS 03/08/12 Valsartan/Hydrochlorothiazide 160-25MG (DIOVAN HCT 160-25 MG TABLET) 1 Each Tablet, 1 EACH PO 03/08/12 Valsartan/Hydrochlorothiazide 160-12.5MG (DIOVAN HCT 160-12.5 MG TAB) 1 Each Tablet, 1 EACH PO DAILY 03/08/12 Metformin Hcl* (GLUCOPHAGE*) 500 Mg Tablet, 1000 MG PO BID, #10 TAB Take 1 tablet by mouth every day. 03/08/12 Sucralfate* (CARAFATE*) 1 Gm Tablet, 1 GM PO BID 03/08/12 Sitagliptin (Januvia) 100 Mg Tab, 100 MG PO DAILY 03/08/12 Potassium Chloride (KLOR-CON 10) 10 Meq Tablet.er, 10 MEQ PO DAILY 03/08/12 Clopidogrel Bisulfate* (PLAVIX*) 75 Mg Tablet, 75 MG PO DAILY, #10 TAB Take 1 tablet by mouth daily. 03/08/12 Furosemide* (LASIX*) 40 Mg Tablet, 40 MG PO DAILY, #10 TAB Take 1 tablet by mouth every day. 03/08/12 Allergies: Coded Allergies: AMOXICILLIN (Verified Allergy, Unknown, 05/15/17) GI: Plan Plan The patient was seen and examined at bedside and all new and available data was reviewed in the patients chart. I agree with the above findings, impression and plan. (Patient seen earlier today. Signature stamp does not reflect patient encounter time.). - MD Bettye [facility]Hon[facility] Michael N.PLala May 16, 2017 16:19 ABY PELLETIER May 18, 2017 10:12
--- NOTE | 2017-05-16 18:00 | Consultation ---
DATE OF CONSULTATION: 05/16/2017 UROLOGY CONSULTATION CONSULTING PHYSICIAN: Roddy Mario M.D. ATTENDING/REFERRING PHYSICIAN: Adri Castaneda M.D. CHIEF COMPLAINT AND HISTORY OF PRESENT ILLNESS: I was asked by Dr. Castaneda to evaluate this very pleasant 72-year-old female regarding history of possible pyelonephritis. Briefly, the patient presented to the hospital with history of increasing abdominal pain, especially in the right flank/hip area. She denied any history of fevers or chills. She did not have any history of nausea or vomiting. A CT scan of the abdomen and pelvis was done, which revealed bilateral perinephric stranding similar to a previous scan in 2006, and also revealed some renal vascular calcifications, but no other significant findings. Given her pain, I was asked to evaluate the patient regarding the above. PAST MEDICAL HISTORY: 1. Coronary artery disease - possible. 2. General anxiety/depression. 3. Diabetes. 4. Hypertension. 5. Hyperlipidemia. PAST SURGICAL HISTORY: 1. Pacemaker insertion. 2. Right hemicolectomy. MEDICATIONS: Please see the chart for current medications and administration details. ALLERGIES: Include amoxicillin. SOCIAL HISTORY: Notable for smoking more than 30-40 pack-years. No history of drug use or alcohol abuse. FAMILY HISTORY: Noncontributory. REVIEW OF SYSTEMS: A 12-system review of systems was essentially unremarkable outside of what is described above. PHYSICAL EXAMINATION: GENERAL: The patient is an older female, awake and alert, oriented x4, pleasant, and in no obvious distress. HEENT: NC/AT. EOMI. Oropharynx is clear. NECK: Supple. Full range of motion. CHEST: Within normal limits. ABDOMEN: Soft, obese, nontender, nondistended. EXTREMITIES: Warm and well perfused. No cyanosis, clubbing, or edema. BACK: No CVA tenderness to percussion. There is some mild tenderness over the patient's right hip at the iliac crest. LABORATORY DATA: White blood cell count 9.3, hematocrit 35, platelets 231,000. Sodium 143, potassium 5.5, chloride 107, bicarbonate 30, BUN 18, creatinine 1.5, glucose 88, calcium 9.4. LFTs within normal limits. Alkaline phosphatase 54. DIAGNOSTIC IMAGING: CT scan of the abdomen and pelvis without contrast reveals bilateral perinephric fat stranding appearing unchanged from a prior study in 2006 and presumably baseline for this patient. There are bilateral renal vascular calcifications which are most likely arterial. There is no acute abnormality. There are pancreatic calcifications more abundant than on prior exam. The patient is status post right hemicolectomy. ASSESSMENT AND PLAN: In summary, the patient is a 72-year-old female with history of right hip and flank pain, presenting for evaluation of the same. She had a CT scan which revealed bilateral perinephric stranding which is consistent with a scan done 10 years ago and is likely normal for her. There was no evidence of a kidney stone, hydronephrosis, or other source of pain stemming from the urinary tract. There is no current urinalysis to evaluate. Physical exam reveals right hip tenderness, but no CVA tenderness or other significant finding. Laboratory data essentially unremarkable, although again urinalysis has not been done. Diagnostic imaging reveals the findings described above. I discussed these findings today with the patient at the bedside. It does not appear that her pain is likely stemming from her urinary tract. A urinalysis has finally been ordered and as such, we will await that result prior to deciding whether or not she has urinary tract infection which could be contributing to her pain. In the absence of evidence of an infection, I would look for an alternative source of pain outside of her urinary tract. Thank you for allowing me to participate in the care of this nice lady. Please do not hesitate to contact me with any questions that you may further have regarding her care. I will be happy to see her with you as needed. Roddy Mario M.D. DR: Ilya JOB#: [id number] CC:
[2017-05-16 20:00] VITALS: BP 145/66
[2017-05-16] MEDS: Losartan 25mg tab ORAL SCH (20:33)
[2017-05-16] MEDS: NovoLOG Insulin Flexpen SUBQ SCH (21:00)
[2017-05-16 22:16] LABS: APPEARANCE,URINE CLEAR; KETONES,URINE NEGATIVE (NEGATIVE); LEUKOCYTE ESTERASE ,URINE NEGATIVE (NEGATIVE); NITRITE,URINE NEGATIVE (NEGATIVE); PH,URINE 5 (4.5-8.0); PROTEIN,URINE NEGATIVE (NEGATIVE); UROBILINOGEN,URINE NORMAL MG/DL (0.0-1.0)
[2017-05-16 22:38] LABS: BACTERIA,URINE FEW /HPF; RBC,URINE 0-2 /HPF (0 - 2); SQUAMOUS EPITHELIAL CELL,UR FEW /LPF (NONE/OCC); WBC,URINE 0-2 /HPF (0 - 2)
[2017-05-17] VITALS: BP 151/68
[2017-05-17] MEDS: Morphine Sulfate 2mg/ml Inj IVP PRN ×2 (01:32→23:23)
[2017-05-17 04:00] VITALS: BP 139/75
[2017-05-17] MEDS: NovoLOG Insulin Flexpen SUBQ SCH ×4 (06:23→20:32)
[2017-05-17 06:42] LABS: BASOPHILS % (AUTO) 0.7 % (0.0-2.0); EOSINOPHILS % (AUTO) 0.9 % (0.0-3.0); LYMPHOCYTES % (AUTO) 15.3 % (20.0-45.0); MEAN CORPUSCULAR HEMOGLOBIN 33.8 PG (27.0-31.0); MEAN CORPUSCULAR HGB CONC 33.6 G/DL (32.0-36.0); MEAN CORPUSCULAR VOLUME 101 FL (80-99); MEAN PLATELET VOLUME 6.9 FL (6.5-10.1); PLATELET COUNT 228 K/UL (150-450); RED BLOOD COUNT 3.53 M/UL (4.20-5.40); RED CELL DISTRIBUTION WIDTH 13.6 % (11.6-14.8); WHITE BLOOD COUNT 10.2 K/UL (4.8-10.8)
[2017-05-17 07:25] LABS: ALANINE AMINOTRANSFERASE 15 U/L (12-78); ANION GAP 7 mmol/L (5-15); ASPARTATE AMINO TRANSFERASE 16 U/L (15-37); CALCIUM 9.6 MG/DL (8.5-10.1); CARBON DIOXIDE 29 MMOL/L (21-32); CHLORIDE 100 MMOL/L (98-107); CHOLESTEROL 180 MG/DL (< 200); CHOLESTEROL/HDL RATIO 3.9 (3.3-4.4); CREATININE 1.7 MG/DL (0.55-1.30); FERRITIN 122 NG/ML (8-388); MAGNESIUM 1.6 MG/DL (1.8-2.4); PHOSPHORUS 3.7 MG/DL (2.5-4.9); POTASSIUM 4.4 MMOL/L (3.5-5.1); SODIUM 136 MMOL/L (136-145); THYROID STIMULATING HORMONE 1.598 uiU/mL (0.358-3.740); TOTAL PROTEIN 6.8 G/DL (6.4-8.2); URIC ACID 5.2 MG/DL (2.6-7.2)
[2017-05-17 07:31] LABS: HEMOGLOBIN A1C 7.6 % (4.3-6.0)
[2017-05-17 07:40] LABS: FOLIC ACID 53.8 NG/ML (8.6-58.9); IRON 34 ug/dL (50-175); TOTAL IRON BINDING CAPACITY 265 ug/dL (250-450)
[2017-05-17 08:00] VITALS: BP 124/75
[2017-05-17] MEDS: Furosemide 40mg tab ORAL SCH (08:41)
[2017-05-17] MEDS: Losartan 25mg tab ORAL SCH ×2 (08:41→20:13)
[2017-05-17] MEDS: Aspirin EC 325mg tab ORAL SCH (08:42)
--- NOTE | 2017-05-17 09:47 | Diagnostic Imaging Report ---
Indication: Acute renal failure Technique: Grayscale and duplex images of the kidneys, retroperitoneum, and bladder were obtained. Comparison:Reference made to abdomen pelvis CT 05/15/2017. Comparison also 11/10/2006 abdomen ultrasound Findings: Right kidney measures 11.1 cm in length. Left kidney measures 10.7 cm in length. Both kidneys demonstrate equivocally slightly increased echogenicity and mild cortical thinning. No hydronephrosis. 13 mm hypoechoic lesion with distal acoustic enhancement in the lower pole of the right kidney is confirmed in retrospect to represent a cyst on previous CT scan. No focal abnormalities seen on the left. Normal inferior vena cava. Bladder is distended, calculated volume 456 mL. Impression: Mildly echogenic kidneys with thinned cortex, consistent with medical renal disease. Note that the cortical thinning is also described on recent CT scan. Negative for hydronephrosis Distended bladder Incidental finding right lower pole renal cyst.
--- NOTE | 2017-05-17 11:42 | Infectious Diseases Prog Note ---
Assessment/Plan Assessment/Plan Abx: Levaquin 05/15-05/16 Assesment: R flank pain- chronic perinephric stranding argues agains acute pyelonephritis- ?musculoskeletal - r/o hip pathology -CT abd/p: Bilateral perinephric fat stranding, appearing unchanged from prior study of 2006 and presumably baseline for this patient. Bilateral renal calcifications are most likely arterial. No acute abnormality. Pancreatic calcifications, more abundant than on the prior exam. Most likely on the basis of progressive chronic calcifying pancreatitis, but consider pancreatic protocol CT or MRI to rule out underlying neoplasm. Prior right hemicolectomy. Colonic diverticulosis. No evidence of diverticulitis. 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 Incidental findings as noted, including basilar bronchial wall thickening, degenerative changes of the lumbar spine, pacemaker, accessory splenule Afebrile, no leukocytosis NOA with urinary retention -u/a negative, no signs of infection -Renal us: Mildly echogenic kidneys with thinned cortex, consistent with medical renal disease. Note that the cortical thinning is also described on recent CT scan. Negative for hydronephrosis. Distended bladder. Incidental finding right lower pole renal cyst. DM2, HTN, s/p PPM, colon polyps s/p hemicolectomy Plan -Continue to monitor off abx -S/p 2 doses of Levaquin -obtain R hip xray -Monitor CBC/BMP, temperatures Thank you for this consultation. Will continue to follow along with you. Discussed with RN. Subjective Allergies: Coded Allergies: AMOXICILLIN (Verified Allergy, Unknown, 05/15/17) Subjective afebrile no leukocytosis off abx Objective Vital Signs Last 24 Hour Vital Signs Date Time Temp Pulse Resp B/P (MAP) Pulse Ox O2 Delivery O2 Flow Rate FiO2 05/17/17 08:41 124/75 05/17/17 08:00 98.0 102 19 124/75 05/17/17 04:00 98.6 98 20 139/75 93 Room Air 05/17/17 00:00 98.2 85 20 151/68 94 Room Air 05/16/17 20:33 149/73 05/16/17 20:00 98.2 87 20 145/66 93 Room Air 05/16/17 17:00 99.6 05/16/17 16:30 98.3 05/16/17 16:00 98.2 95 20 149/73 98 Room Air 05/16/17 12:00 99.6 95 19 149/81 95 Room Air Height (Feet): 5 Height (Inches): 8.00 Weight (Pounds): 150 Objective General Appearance: alert non-toxic, mild distress HEENT:normocephalic, atraumatic bilateral eye PERRL, normal pharynx Neck: full range of motion, supple/symm/no masses Respiratory: chest non-tender, lungs clear, normal breath sounds, speaking full sentences Cardiovascular : regular rate, rhythm, no edema Gastrointestinal: normal bowel sounds, non tender, soft, non-distended, no guarding, no rebound. TTP in R waist area Genitourinary: no CVAT Musculoskeletal: back normal, gait/station normal, normal range of motion, non- tender, neg leg raise test b/l Skin: normal color, no rash, warm/dry, well hydrated Laboratory Tests Test 05/16/17 21:00 05/17/17 05:35 Urine Color Pale yellow Urine Appearance Clear Urine pH 5 (4.5-8.0) Urine Specific [place] 1.005 (1.005-1.035) Urine Protein Negative (NEGATIVE) Urine Glucose (UA) Negative (NEGATIVE) Urine Ketones Negative (NEGATIVE) Urine Occult Blood Negative (NEGATIVE) Urine Nitrite Negative (NEGATIVE) Urine Bilirubin Negative (NEGATIVE) Urine Urobilinogen Normal MG/DL (0.0-1.0) Urine Leukocyte Esterase Negative (NEGATIVE) Urine RBC 0-2 /HPF (0 - 2) Urine WBC 0-2 /HPF (0 - 2) Urine Squamous Epithelial Cells Few /LPF (NONE/OCC) Urine Bacteria Few /HPF (NONE) Urine Random Sodium 130 MEQ/L (20-110) H White Blood Count 10.2 K/UL (4.8-10.8) Red Blood Count 3.53 M/UL (4.20-5.40) L Hemoglobin 11.9 G/DL (12.0-16.0) L Hematocrit 35.6 % (37.0-47.0) L Mean Corpuscular Volume 101 FL (80-99) H Mean Corpuscular Hemoglobin 33.8 PG (27.0-31.0) H Mean Corpuscular Hemoglobin Concent 33.6 G/DL (32.0-36.0) Red Cell Distribution Width 13.6 % (11.6-14.8) Platelet Count 228 K/UL (150-450) Mean Platelet Volume 6.9 FL (6.5-10.1) Neutrophils (%) (Auto) 73.0 % (45.0-75.0) Lymphocytes (%) (Auto) 15.3 % (20.0-45.0) L Monocytes (%) (Auto) 10.0 % (1.0-10.0) Eosinophils (%) (Auto) 0.9 % (0.0-3.0) Basophils (%) (Auto) 0.7 % (0.0-2.0) Sodium Level 136 MMOL/L (136-145) Potassium Level 4.4 MMOL/L (3.5-5.1) Chloride Level 100 MMOL/L (98-107) Carbon Dioxide Level 29 MMOL/L (21-32) Anion Gap 7 mmol/L (5-15) Blood Urea Nitrogen 22 mg/dL (7-18) H Creatinine 1.7 MG/DL (0.55-1.30) H Estimat Glomerular Filtration Rate mL/min (>60) Glucose Level 137 MG/DL (74-106) H Hemoglobin A1c 7.6 % (4.3-6.0) H Uric Acid 5.2 MG/DL (2.6-7.2) Calcium Level 9.6 MG/DL (8.5-10.1) Phosphorus Level 3.7 MG/DL (2.5-4.9) Magnesium Level 1.6 MG/DL (1.8-2.4) L Iron Level 34 ug/dL (50-175) L Total Iron Binding Capacity 265 ug/dL (250-450) Percent Iron Saturation 13 % (15-50) L Unsaturated Iron Binding 231 ug/dL (112-346) Ferritin 122 NG/ML (8-388) Total Bilirubin 0.9 MG/DL (0.2-1.0) Gamma Glutamyl Transpeptidase 26 U/L (5-85) Aspartate Amino Transf (AST/SGOT) 16 U/L (15-37) Alanine Aminotransferase (ALT/SGPT) 15 U/L (12-78) Alkaline Phosphatase 57 U/L (46-116) Total Creatine Kinase 72 U/L (26-308) Troponin I 0.005 ng/mL (0.000-0.056) C-Reactive Protein, Quantitative 4.0 mg/dL (0.00-0.90) H Pro-B-Type Natriuretic Peptide 982 pg/mL (0-125) H Total Protein 6.8 G/DL (6.4-8.2) Albumin 3.4 G/DL (3.4-5.0) Globulin 3.4 g/dL Albumin/Globulin Ratio 1.0 (1.0-2.7) Triglycerides Level 131 MG/DL (30-150) Cholesterol Level 180 MG/DL (< 200) LDL Cholesterol 105 mg/dL (<100) H HDL Cholesterol 46 MG/DL (40-60) Cholesterol/HDL Ratio 3.9 (3.3-4.4) Vitamin B12 Level 387 PG/ML (193-986) Folate 53.8 NG/ML (8.6-58.9) Thyroid Stimulating Hormone (TSH) 1.598 uiU/mL (0.358-3.740) Current Medications Medications (Trade) Dose Ordered Sig/Zachary Route PRN Reason Start Time Stop Time Status Last Admin Dose Admin Acetaminophen (Tylenol) 650 mg Q4H PRN ORAL Mild Pain/Temp > 100.5 05/15/17 23:45 06/14/17 23:44 05/16/17 15:35 Acetaminophen/ Hydrocodone Bitart ([place] 5/325) 1 tab Q4H PRN ORAL Moderate Pain (Pain Scale 4-6) 05/16/17 15:30 05/23/17 15:29 Aspirin (Ecotrin) 325 mg DAILY ORAL 05/16/17 09:00 06/15/17 08:59 05/17/17 08:42 Clopidogrel Bisulfate (Plavix) 75 mg DAILY ORAL 05/16/17 09:00 06/15/17 08:59 05/17/17 08:42 Dextrose (Dextrose 50%) STAT PRN IV Hypoglycemia 05/15/17 23:45 06/14/17 23:44 Diazepam (Valium) 2 mg TID PRN ORAL For Anxiety 05/15/17 23:15 05/22/17 23:14 Diphenhydramine HCl (Benadryl) 25 mg Q6H PRN ORAL Itching 05/16/17 00:00 06/15/17 00:00 Escitalopram Oxalate (Lexapro) 10 mg QHS ORAL 05/16/17 21:00 06/15/17 20:59 05/16/17 20:34 Furosemide (Lasix) 40 mg DAILY ORAL 05/16/17 09:00 06/15/17 08:59 05/17/17 08:41 Insulin Aspart (NovoLOG) BEFORE MEALS AND HS SUBQ 05/16/17 06:30 06/15/17 06:29 Lansoprazole (Prevacid) 30 mg DAILY ORAL 05/16/17 15:45 06/15/17 15:44 05/17/17 08:41 Losartan Potassium (Cozaar) 25 mg EVERY 12 HOURS ORAL 05/16/17 21:00 06/15/17 20:59 05/17/17 08:41 Magnesium Sulfate 100 ml @ 100 mls/hr Q1H IVPB 05/17/17 11:00 05/17/17 12:59 Morphine Sulfate (Morphine Sulfate) 2 mg Q6H PRN IVP Severe Pain (Scale 7-10) 05/16/17 15:30 05/23/17 15:29 05/17/17 01:32 Amara Valadez M.D. May 17, 2017 11:42
[2017-05-17 12:00] VITALS: BP 153/76
--- NOTE | 2017-05-17 13:02 | Consultation ---
Consult Note Consult Note Pt with known h/o PVD, presents with abdominal pain not related to eating. Denies N/V/D/F/C. Pt is a chronic smoker and has been followed by a vascular surgeon for asymptomatic carotid stenosis and LE AOD. PMH/ROS/Hosp. course noted. Exam -- NAD; AVSS; cor RRR; lungs CTA; abd. soft, NT, ND, NABS; extr. with mild LE edema, o/w no C/C/E, distal pulses weak or absent, femoral pulses present, no foot ulcer or gangrene Labs/imaging reviewed Assessment/Plan -- Abdominal pain now resolved; atypical presentation for ischemic bowel but pt is at risk and must be followed as outpt. Offered pt further work-up for chronic vascular etiology but states she is already followed by a vascular surgeon periodically for carotid and LE AOD and will make an appointment RADHA. -- Continue medical mgmt per PMD to include antiplatelet and statin therapy. -- Strongly encouraged pt to stop smoking, among other risk mgmt strategies. -- DVT prophylaxis GINNY RODRIGUEZ May 17, 2017 13:02
--- NOTE | 2017-05-17 13:28 | GI Progress Note ---
Assessment/Plan Problems: (1) Abdominal pain ICD Codes: R10.9 - Unspecified abdominal pain SNOMED: 21511565 (2) Anemia ICD Codes: D64.9 - Anemia, unspecified SNOMED: 834252770 (3) Pyelonephritis ICD Codes: N12 - Tubulo-interstitial nephritis, not specified as acute or chronic SNOMED: 67889874 (4) Renal insufficiency ICD Codes: N28.9 - Disorder of kidney and ureter, unspecified SNOMED: 772979405, 688297818 (5) History of colectomy ICD Codes: Z90.49 - Acquired absence of other specified parts of digestive tract SNOMED: 795888529 Status: unchanged Status Narrative Discussed with Dr. Rodriguez. Assessment/Plan CT AP reviewed >> - Bilateral perinephric fat stranding, appearing unchanged from prior study of 2006 and presumably baseline for this patient. Bilateral renal calcifications are most likely arterial - No acute abnormality - Pancreatic calcifications, more abundant than on the prior exam. Most likely on the basis of progressive chronic calcifying pancreatitis, but consider pancreatic protocol CT or MRI to rule out underlying neoplasm - Prior right hemicolectomy - Colonic diverticulosis. No evidence of diverticulitis - Subcentimeter right lobe liver lesion, too small to characterize but unchanged from 11/19/2006, presumably benign simple cysts or bile hamartomas. Recommendations: fu nephro recs anemia work up - fu B12/folate >> WNL - iron deficient >> venofer x 1 OB stool r/o GI bleed monitor H&H, prn transfusions bowel regime >> colace + miralax ADA diet, tolerating pain mgmt zofran prn cont PPI fu labs outpatient EGD/colonoscopy (patient on Plavix, must be held min 72 hours prior any GI procedure) Subjective Subjective abdominal pain improved c/o of right flank pain Objective Last 24 Hour Vital Signs Date Time Temp Pulse Resp B/P (MAP) Pulse Ox O2 Delivery O2 Flow Rate FiO2 05/17/17 12:00 97.2 97 20 153/76 05/17/17 08:41 124/75 05/17/17 08:00 98.0 102 19 124/75 05/17/17 04:00 98.6 98 20 139/75 93 Room Air 05/17/17 00:00 98.2 85 20 151/68 94 Room Air 05/16/17 20:33 149/73 05/16/17 20:00 98.2 87 20 145/66 93 Room Air 05/16/17 17:00 99.6 05/16/17 16:30 98.3 05/16/17 16:00 98.2 95 20 149/73 98 Room Air Intake and Output 05/17/17 05/18/17 19:00 07:00 Intake Total 350 ml Balance 350 ml Intake Oral 350 ml # Voids 1 Laboratory Tests Test 05/16/17 21:00 05/17/17 05:35 Urine Color Pale yellow Urine Appearance Clear Urine pH 5 (4.5-8.0) Urine Specific [place] 1.005 (1.005-1.035) Urine Protein Negative (NEGATIVE) Urine Glucose (UA) Negative (NEGATIVE) Urine Ketones Negative (NEGATIVE) Urine Occult Blood Negative (NEGATIVE) Urine Nitrite Negative (NEGATIVE) Urine Bilirubin Negative (NEGATIVE) Urine Urobilinogen Normal MG/DL (0.0-1.0) Urine Leukocyte Esterase Negative (NEGATIVE) Urine RBC 0-2 /HPF (0 - 2) Urine WBC 0-2 /HPF (0 - 2) Urine Squamous Epithelial Cells Few /LPF (NONE/OCC) Urine Bacteria Few /HPF (NONE) Urine Random Sodium 130 MEQ/L (20-110) H White Blood Count 10.2 K/UL (4.8-10.8) Red Blood Count 3.53 M/UL (4.20-5.40) L Hemoglobin 11.9 G/DL (12.0-16.0) L Hematocrit 35.6 % (37.0-47.0) L Mean Corpuscular Volume 101 FL (80-99) H Mean Corpuscular Hemoglobin 33.8 PG (27.0-31.0) H Mean Corpuscular Hemoglobin Concent 33.6 G/DL (32.0-36.0) Red Cell Distribution Width 13.6 % (11.6-14.8) Platelet Count 228 K/UL (150-450) Mean Platelet Volume 6.9 FL (6.5-10.1) Neutrophils (%) (Auto) 73.0 % (45.0-75.0) Lymphocytes (%) (Auto) 15.3 % (20.0-45.0) L Monocytes (%) (Auto) 10.0 % (1.0-10.0) Eosinophils (%) (Auto) 0.9 % (0.0-3.0) Basophils (%) (Auto) 0.7 % (0.0-2.0) Sodium Level 136 MMOL/L (136-145) Potassium Level 4.4 MMOL/L (3.5-5.1) Chloride Level 100 MMOL/L (98-107) Carbon Dioxide Level 29 MMOL/L (21-32) Anion Gap 7 mmol/L (5-15) Blood Urea Nitrogen 22 mg/dL (7-18) H Creatinine 1.7 MG/DL (0.55-1.30) H Estimat Glomerular Filtration Rate mL/min (>60) Glucose Level 137 MG/DL (74-106) H Hemoglobin A1c 7.6 % (4.3-6.0) H Uric Acid 5.2 MG/DL (2.6-7.2) Calcium Level 9.6 MG/DL (8.5-10.1) Phosphorus Level 3.7 MG/DL (2.5-4.9) Magnesium Level 1.6 MG/DL (1.8-2.4) L Iron Level 34 ug/dL (50-175) L Total Iron Binding Capacity 265 ug/dL (250-450) Percent Iron Saturation 13 % (15-50) L Unsaturated Iron Binding 231 ug/dL (112-346) Ferritin 122 NG/ML (8-388) Total Bilirubin 0.9 MG/DL (0.2-1.0) Gamma Glutamyl Transpeptidase 26 U/L (5-85) Aspartate Amino Transf (AST/SGOT) 16 U/L (15-37) Alanine Aminotransferase (ALT/SGPT) 15 U/L (12-78) Alkaline Phosphatase 57 U/L (46-116) Total Creatine Kinase 72 U/L (26-308) Troponin I 0.005 ng/mL (0.000-0.056) C-Reactive Protein, Quantitative 4.0 mg/dL (0.00-0.90) H Pro-B-Type Natriuretic Peptide 982 pg/mL (0-125) H Total Protein 6.8 G/DL (6.4-8.2) Albumin 3.4 G/DL (3.4-5.0) Globulin 3.4 g/dL Albumin/Globulin Ratio 1.0 (1.0-2.7) Triglycerides Level 131 MG/DL (30-150) Cholesterol Level 180 MG/DL (< 200) LDL Cholesterol 105 mg/dL (<100) H HDL Cholesterol 46 MG/DL (40-60) Cholesterol/HDL Ratio 3.9 (3.3-4.4) Vitamin B12 Level 387 PG/ML (193-986) Folate 53.8 NG/ML (8.6-58.9) Thyroid Stimulating Hormone (TSH) 1.598 uiU/mL (0.358-3.740) Height (Feet): 5 Height (Inches): 8.00 Weight (Pounds): 150 General Appearance: WD/WN, no apparent distress, alert Cardiovascular: normal rate Respiratory/Chest: normal breath sounds, no respiratory distress Abdominal Exam: normal bowel sounds, non tender, soft Extremities: normal range of motion, non-tender Genna Wen N.P. May 17, 2017 13:28
--- NOTE | 2017-05-17 13:54 | Cardiology Report ---
APPROVED REPORT EXAM: Two-dimensional and M-mode echocardiogram with Doppler and color Doppler. INDICATION Congestive Heart Failure M-Mode DIMENSIONS IVSd1.2 (0.7-1.1cm)Left Atrium (MM)4.5 (1.6-4.0cm) LVDd3.9 (3.5-5.6cm)Aortic Root2.9 (2.0-3.7cm) PWd1.1 (0.7-1.1cm)Aortic Cusp Exc.1.7 (1.5-2.0cm) IVSs1.8 cm LVDs2.6 (2.5-4.0cm) PWs1.2 cm Technically difficult study due to poor parasternal acoustical windows. Study quality precludes accurate assessment of regional wall motion. Normal left ventricular chamber size, systolic function and wall motion. Left ventricular ejection fraction estimated to be 60 %. Mild left ventricular hypertrophy. Anterior Echo-free space, may be due to pericardial fat or effusion. All other cardiac chamber sizes are within normal limits. Mild focal aortic valve sclerosis with adequate cusp excursion. Bioprosthetic MV noted, leaflets not well seen Pulmonic valve not well visualized. Normal tricuspid valve structure. IVC measures at 1.8 cm with physiologic collapse. A color flow and spectral Doppler study was performed and revealed: Mild aortic regurgitation. Trace mitral regurgitation. Mitral P1/2 time of 63 m/s is compatible with a mitral valve area of 3.5 cm2. Peak mitral valve diastolic gradient of 8 mmHg and a mean gradient of 3 mmHg. Mitral inflow velocities nondiagnostic Mild tricuspid regurgitation. Tricuspid systolic velocities suggests peak right ventricular systolic pressure of 45 mmHg, consistent with moderate pulmonary hypertension. No pulmonic regurgitation present.
--- NOTE | 2017-05-17 14:02 | Nephrology Progress Note ---
Assessment/Plan Problem List: (1) Renal insufficiency Assessment Renal failure- ( bactrim- DM , HTN .... cr 1.7 not chnaged No Urine yet ! DM Pacer CABGs MV surgery Over weight here with left flank pain ? acute papillary necrosis ?? Anemia Plan Plan: iv iron- B12- Mag supp. Flomax UA negative Urine c/s P Optimize cardiac status 2 D echo Pending Kidney JACQUELINE: Mildly echogenic kidneys with thinned cortex, consistent with medical renal disease. Note that the cortical thinning is also described on recent CT scan. Negative for hydronephrosis Distended bladder avoid nephrotoxics Anemia james Subjective ROS Limited/Unobtainable: No Constitutional: Reports: other - flank pain improved Objective Objective Last 24 Hour Vital Signs Date Time Temp Pulse Resp B/P (MAP) Pulse Ox O2 Delivery O2 Flow Rate FiO2 05/17/17 12:00 97.2 97 20 153/76 05/17/17 08:41 124/75 05/17/17 08:00 98.0 102 19 124/75 05/17/17 04:00 98.6 98 20 139/75 93 Room Air 05/17/17 00:00 98.2 85 20 151/68 94 Room Air 05/16/17 20:33 149/73 05/16/17 20:00 98.2 87 20 145/66 93 Room Air 05/16/17 17:00 99.6 05/16/17 16:30 98.3 05/16/17 16:00 98.2 95 20 149/73 98 Room Air Intake and Output 05/17/17 05/18/17 19:00 07:00 Intake Total 350 ml Balance 350 ml Intake Oral 350 ml # Voids 1 Laboratory Tests 05/16/17 21:00: Urine Color Pale yellow, Urine Appearance Clear, Urine pH 5, Urine Specific [place] 1.005, Urine Protein Negative, Urine Glucose (UA) Negative, Urine Ketones Negative, Urine Occult Blood Negative, Urine Nitrite Negative, Urine Bilirubin Negative, Urine Urobilinogen Normal, Urine Leukocyte Esterase Negative , Urine RBC 0-2, Urine WBC 0-2, Urine Squamous Epithelial Cells Few, Urine Bacteria Few, Urine Random Sodium 130H 05/17/17 05:35: White Blood Count 10.2, Red Blood Count 3.53L, Hemoglobin 11.9L, Hematocrit 35.6L, Mean Corpuscular Volume 101H, Mean Corpuscular Hemoglobin 33.8H, Mean Corpuscular Hemoglobin Concent 33.6, Red Cell Distribution Width 13.6, Platelet Count 228, Mean Platelet Volume 6.9, Neutrophils (%) (Auto) 73.0, Lymphocytes (% ) (Auto) 15.3L, Monocytes (%) (Auto) 10.0, Eosinophils (%) (Auto) 0.9, Basophils (%) (Auto) 0.7, Sodium Level 136, Potassium Level 4.4, Chloride Level 100, Carbon Dioxide Level 29, Anion Gap 7, Blood Urea Nitrogen 22H, Creatinine 1.7H, Estimat Glomerular Filtration Rate , Glucose Level 137H, Hemoglobin A1c 7.6H, Uric Acid 5.2, Calcium Level 9.6, Phosphorus Level 3.7, Magnesium Level 1.6L, Iron Level 34L, Total Iron Binding Capacity 265, Percent Iron Saturation 13L, Unsaturated Iron Binding 231, Ferritin 122, Total Bilirubin 0.9, Gamma Glutamyl Transpeptidase 26, Aspartate Amino Transf (AST/SGOT) 16, Alanine Aminotransferase (ALT/SGPT) 15, Alkaline Phosphatase 57, Total Creatine Kinase 72, Troponin I 0.005, C-Reactive Protein, Quantitative 4.0H, Pro-B-Type Natriuretic Peptide 982H, Total Protein 6.8, Albumin 3.4, Globulin 3.4, Albumin/ Globulin Ratio 1.0, Triglycerides Level 131, Cholesterol Level 180, LDL Cholesterol 105H, HDL Cholesterol 46, Cholesterol/HDL Ratio 3.9, Vitamin B12 Level 387, Folate 53.8, Thyroid Stimulating Hormone (TSH) 1.598 Height (Feet): 5 Height (Inches): 8.00 Weight (Pounds): 150 General Appearance: no apparent distress Cardiovascular: normal rate Respiratory/Chest: decreased breath sounds Abdomen: distended DIPIKA GARCIA May 17, 2017 14:02
[2017-05-17 16:00] VITALS: BP 107/66
[2017-05-17] MEDS ORDERED: Iron Sucrose 200 MG in NS 110 ML IV ONE (16:00)
[2017-05-17] MEDS: Vitamin B12 1000mcg/ml Inj SUBQ SCH (17:42)
--- NOTE | 2017-05-17 17:48 | Diagnostic Imaging Report ---
Indication: PAIN Technique: 2 views of the right hip Comparison: None Findings: No acute fractures. No dislocations. There is mild degenerative joint space narrowing of the hip joint. Clips are seen in the right proximal thigh medially. This there are vascular calcifications Impression: No acute bony trauma Note, however, that in elderly osteoporotic patients, nondisplaced fractures can easily be occult. Consider cross-sectional imaging for further evaluation as clinically indicated Degenerative changes, as described
[2017-05-17 20:00] VITALS: BP 115/68
[2017-05-17] MEDS: Miralax 17gm pkt ORAL SCH (20:37)
[2017-05-17] MEDS ORDERED: Tamsulosin 0.4mg cap ORAL SCH (21:00)
[2017-05-17] MEDS ORDERED: Iron Sucrose 100 MG in NS 55 ML IV ONE (21:00)
--- NOTE | 2017-05-17 23:13 | General Progress Note ---
Assessment/Plan Status: stable Assessment/Plan 1. Acute on chronic abdominal pain. Differential diagnosis are including, but not limited to ischemic mesentery or diverticulitis. 2. Acute on chronic renal failure (age indeterminate). 3. Anemia. 4. History of smoking more than 40 pack per year. 5. Diabetes type 2, fairly controlled with A1c of 7.5. 6. Hyperlipidemia. 7. Hypertension. 8. Coronary artery disease 9. Gastrointestinal and deep vein thrombosis prophylaxis. 10. PAH 11. PVD following notes reviewed: Nephro, Gi, Vascular, ID and Urology source of pain not clear, pending current workup Subjective ROS Limited/Unobtainable: No Constitutional: Reports: no symptoms, other - abdominal pain HEENT: Reports: no symptoms Gastrointestinal/Abdominal: Reports: abdominal pain Allergies: Coded Allergies: AMOXICILLIN (Verified Allergy, Unknown, 05/15/17) Objective Last 24 Hour Vital Signs Date Time Temp Pulse Resp B/P (MAP) Pulse Ox O2 Delivery O2 Flow Rate FiO2 05/17/17 20:13 115/68 05/17/17 20:00 98.7 84 18 115/68 Room Air 05/17/17 16:00 97.9 80 17 107/66 05/17/17 12:00 97.2 97 20 153/76 05/17/17 08:41 124/75 05/17/17 08:00 98.0 102 19 124/75 05/17/17 04:00 98.6 98 20 139/75 93 Room Air 05/17/17 00:00 98.2 85 20 151/68 94 Room Air Intake and Output 05/17/17 05/18/17 19:00 07:00 Intake Total 850 ml Balance 850 ml Intake Oral 850 ml # Voids 3 Laboratory Tests 05/17/17 05:35: White Blood Count 10.2, Red Blood Count 3.53L, Hemoglobin 11.9L, Hematocrit 35.6L, Mean Corpuscular Volume 101H, Mean Corpuscular Hemoglobin 33.8H, Mean Corpuscular Hemoglobin Concent 33.6, Red Cell Distribution Width 13.6, Platelet Count 228, Mean Platelet Volume 6.9, Neutrophils (%) (Auto) 73.0, Lymphocytes (% ) (Auto) 15.3L, Monocytes (%) (Auto) 10.0, Eosinophils (%) (Auto) 0.9, Basophils (%) (Auto) 0.7, Sodium Level 136, Potassium Level 4.4, Chloride Level 100, Carbon Dioxide Level 29, Anion Gap 7, Blood Urea Nitrogen 22H, Creatinine 1.7H, Estimat Glomerular Filtration Rate , Glucose Level 137H, Hemoglobin A1c 7.6H, Uric Acid 5.2, Calcium Level 9.6, Phosphorus Level 3.7, Magnesium Level 1.6L, Iron Level 34L, Total Iron Binding Capacity 265, Percent Iron Saturation 13L, Unsaturated Iron Binding 231, Ferritin 122, Total Bilirubin 0.9, Gamma Glutamyl Transpeptidase 26, Aspartate Amino Transf (AST/SGOT) 16, Alanine Aminotransferase (ALT/SGPT) 15, Alkaline Phosphatase 57, Total Creatine Kinase 72, Troponin I 0.005, C-Reactive Protein, Quantitative 4.0H, Pro-B-Type Natriuretic Peptide 982H, Total Protein 6.8, Albumin 3.4, Globulin 3.4, Albumin/ Globulin Ratio 1.0, Triglycerides Level 131, Cholesterol Level 180, LDL Cholesterol 105H, HDL Cholesterol 46, Cholesterol/HDL Ratio 3.9, Vitamin B12 Level 387, Folate 53.8, Thyroid Stimulating Hormone (TSH) 1.598 Height (Feet): 5 Height (Inches): 8.00 Weight (Pounds): 150 General Appearance: no apparent distress EENT: PERRL/EOMI Neck: supple Abdomen: soft Extremities: non-tender Neurologic: commercial lines insurance agent II-XII grossly normal Adri Castaneda MD May 17, 2017 23:13
[2017-05-18] VITALS: BP 109/52
[2017-05-18 04:00] VITALS: BP 88/58
[2017-05-18] MEDS: Miralax 17gm pkt ORAL SCH (04:14)
[2017-05-18] MEDS: Morphine Sulfate 2mg/ml Inj IVP PRN (05:05)
[2017-05-18] MEDS: NovoLOG Insulin Flexpen SUBQ SCH ×2 (07:04→11:54)
[2017-05-18 07:16] LABS: BASOPHILS % (AUTO) 0.8 % (0.0-2.0); EOSINOPHILS % (AUTO) 1.7 % (0.0-3.0); LYMPHOCYTES % (AUTO) 20.3 % (20.0-45.0); MEAN CORPUSCULAR HEMOGLOBIN 33.7 PG (27.0-31.0); MEAN CORPUSCULAR VOLUME 102 FL (80-99); MONOCYTES % (AUTO) 11.6 % (1.0-10.0); NEUTROPHILS % (AUTO) 65.6 % (45.0-75.0); PLATELET COUNT 229 K/UL (150-450); RED BLOOD COUNT 3.86 M/UL (4.20-5.40); RED CELL DISTRIBUTION WIDTH 13.5 % (11.6-14.8); WHITE BLOOD COUNT 7.7 K/UL (4.8-10.8)
[2017-05-18 07:36] LABS: ANION GAP 9 mmol/L (5-15); CALCIUM 9.9 MG/DL (8.5-10.1); CARBON DIOXIDE 29 MMOL/L (21-32); CHLORIDE 98 MMOL/L (98-107); CREATININE 1.8 MG/DL (0.55-1.30); MAGNESIUM 2.2 MG/DL (1.8-2.4); POTASSIUM 3.7 MMOL/L (3.5-5.1); SODIUM 136 MMOL/L (136-145)
[2017-05-18 07:56] LABS: ALANINE AMINOTRANSFERASE 17 U/L (12-78); ASPARTATE AMINO TRANSFERASE 17 U/L (15-37); BILIRUBIN,DIRECT 0.3 MG/DL (0.0-0.3); PHOSPHORUS 4.2 MG/DL (2.5-4.9); TOTAL PROTEIN 6.6 G/DL (6.4-8.2)
[2017-05-18 08:00] VITALS: BP 135/74
--- NOTE | 2017-05-18 08:39 | Cardiology Progress Note ---
Assessment/Plan Assessment/Plan The patient is seen and examined, full consult note is dictated. Objective Last 24 Hour Vital Signs Date Time Temp Pulse Resp B/P (MAP) Pulse Ox O2 Delivery O2 Flow Rate FiO2 05/18/17 04:00 98.1 98 18 88/58 97 05/18/17 00:00 98.3 104 18 109/52 94 05/17/17 20:13 115/68 05/17/17 20:00 98.7 84 18 115/68 Room Air 05/17/17 16:00 97.9 80 17 107/66 05/17/17 12:00 97.2 97 20 153/76 05/17/17 08:41 124/75 Laboratory Tests Test 05/18/17 05:15 White Blood Count 7.7 K/UL (4.8-10.8) Red Blood Count 3.86 M/UL (4.20-5.40) L Hemoglobin 13.0 G/DL (12.0-16.0) Hematocrit 39.3 % (37.0-47.0) Mean Corpuscular Volume 102 FL (80-99) H Mean Corpuscular Hemoglobin 33.7 PG (27.0-31.0) H Mean Corpuscular Hemoglobin Concent 33.0 G/DL (32.0-36.0) Red Cell Distribution Width 13.5 % (11.6-14.8) Platelet Count 229 K/UL (150-450) Mean Platelet Volume 7.0 FL (6.5-10.1) Neutrophils (%) (Auto) 65.6 % (45.0-75.0) Lymphocytes (%) (Auto) 20.3 % (20.0-45.0) Monocytes (%) (Auto) 11.6 % (1.0-10.0) H Eosinophils (%) (Auto) 1.7 % (0.0-3.0) Basophils (%) (Auto) 0.8 % (0.0-2.0) Sodium Level 136 MMOL/L (136-145) Potassium Level 3.7 MMOL/L (3.5-5.1) Chloride Level 98 MMOL/L (98-107) Carbon Dioxide Level 29 MMOL/L (21-32) Anion Gap 9 mmol/L (5-15) Blood Urea Nitrogen 28 mg/dL (7-18) H Creatinine 1.8 MG/DL (0.55-1.30) H Estimat Glomerular Filtration Rate mL/min (>60) Glucose Level 148 MG/DL (74-106) H Calcium Level 9.9 MG/DL (8.5-10.1) Phosphorus Level 4.2 MG/DL (2.5-4.9) Magnesium Level 2.2 MG/DL (1.8-2.4) Total Bilirubin 1.0 MG/DL (0.2-1.0) Direct Bilirubin 0.3 MG/DL (0.0-0.3) Aspartate Amino Transf (AST/SGOT) 17 U/L (15-37) Alanine Aminotransferase (ALT/SGPT) 17 U/L (12-78) Alkaline Phosphatase 59 U/L (46-116) Total Protein 6.6 G/DL (6.4-8.2) Albumin 3.7 G/DL (3.4-5.0) ISELA BUENROSTRO May 18, 2017 08:39
[2017-05-18] MEDS ORDERED: Aspirin EC 81mg tab ORAL SCH (09:00)
[2017-05-18] MEDS ORDERED: Aspirin EC 325mg tab ORAL SCH (09:00)
[2017-05-18] MEDS ORDERED: Furosemide 40mg tab ORAL SCH (09:00)
[2017-05-18] MEDS: Vitamin B12 1000mcg/ml Inj SUBQ SCH (09:28)
[2017-05-18] MEDS: Losartan 25mg tab ORAL SCH (09:49)
--- NOTE | 2017-05-18 10:50 | GI Progress Note ---
Assessment/Plan Problems: (1) Abdominal pain ICD Codes: R10.9 - Unspecified abdominal pain SNOMED: 66360559 (2) Anemia ICD Codes: D64.9 - Anemia, unspecified SNOMED: 330609705 (3) Pyelonephritis ICD Codes: N12 - Tubulo-interstitial nephritis, not specified as acute or chronic SNOMED: 25187901 (4) Renal insufficiency ICD Codes: N28.9 - Disorder of kidney and ureter, unspecified SNOMED: 593603576, 054444033 (5) History of colectomy ICD Codes: Z90.49 - Acquired absence of other specified parts of digestive tract SNOMED: 503365640 Status: unchanged Status Narrative Discussed with Dr. Rdoriguez. Assessment/Plan CT AP reviewed >> - Bilateral perinephric fat stranding, appearing unchanged from prior study of 2006 and presumably baseline for this patient. Bilateral renal calcifications are most likely arterial - No acute abnormality - Pancreatic calcifications, more abundant than on the prior exam. Most likely on the basis of progressive chronic calcifying pancreatitis, but consider pancreatic protocol CT or MRI to rule out underlying neoplasm - Prior right hemicolectomy - Colonic diverticulosis. No evidence of diverticulitis - Subcentimeter right lobe liver lesion, too small to characterize but unchanged from 11/19/2006, presumably benign simple cysts or bile hamartomas. Recommendations: fu amylase, lactic acid r/o ischemia fu nephro recs anemia work up - fu B12/folate >> WNL - iron deficient >> venofer completed OB stool r/o GI bleed monitor H&H, prn transfusions bowel regime >> colace + miralax, will add dulcolax prn ADA diet, tolerating pain mgmt zofran prn cont PPI fu labs outpatient EGD/colonoscopy (patient on Plavix, must be held min 72 hours prior any GI procedure) Subjective Subjective c/o of RUQ / right flank pain constipated Objective Last 24 Hour Vital Signs Date Time Temp Pulse Resp B/P (MAP) Pulse Ox O2 Delivery O2 Flow Rate FiO2 05/18/17 09:49 135/74 05/18/17 08:00 98.5 103 18 135/74 97 05/18/17 04:00 98.1 98 18 88/58 97 05/18/17 00:00 98.3 104 18 109/52 94 05/17/17 20:13 115/68 05/17/17 20:00 98.7 84 18 115/68 Room Air 05/17/17 16:00 97.9 80 17 107/66 05/17/17 12:00 97.2 97 20 153/76 Laboratory Tests Test 05/18/17 05:00 05/18/17 05:15 Amylase Level 101 U/L (25-115) White Blood Count 7.7 K/UL (4.8-10.8) Red Blood Count 3.86 M/UL (4.20-5.40) L Hemoglobin 13.0 G/DL (12.0-16.0) Hematocrit 39.3 % (37.0-47.0) Mean Corpuscular Volume 102 FL (80-99) H Mean Corpuscular Hemoglobin 33.7 PG (27.0-31.0) H Mean Corpuscular Hemoglobin Concent 33.0 G/DL (32.0-36.0) Red Cell Distribution Width 13.5 % (11.6-14.8) Platelet Count 229 K/UL (150-450) Mean Platelet Volume 7.0 FL (6.5-10.1) Neutrophils (%) (Auto) 65.6 % (45.0-75.0) Lymphocytes (%) (Auto) 20.3 % (20.0-45.0) Monocytes (%) (Auto) 11.6 % (1.0-10.0) H Eosinophils (%) (Auto) 1.7 % (0.0-3.0) Basophils (%) (Auto) 0.8 % (0.0-2.0) Sodium Level 136 MMOL/L (136-145) Potassium Level 3.7 MMOL/L (3.5-5.1) Chloride Level 98 MMOL/L (98-107) Carbon Dioxide Level 29 MMOL/L (21-32) Anion Gap 9 mmol/L (5-15) Blood Urea Nitrogen 28 mg/dL (7-18) H Creatinine 1.8 MG/DL (0.55-1.30) H Estimat Glomerular Filtration Rate mL/min (>60) Glucose Level 148 MG/DL (74-106) H Calcium Level 9.9 MG/DL (8.5-10.1) Phosphorus Level 4.2 MG/DL (2.5-4.9) Magnesium Level 2.2 MG/DL (1.8-2.4) Total Bilirubin 1.0 MG/DL (0.2-1.0) Direct Bilirubin 0.3 MG/DL (0.0-0.3) Aspartate Amino Transf (AST/SGOT) 17 U/L (15-37) Alanine Aminotransferase (ALT/SGPT) 17 U/L (12-78) Alkaline Phosphatase 59 U/L (46-116) Total Protein 6.6 G/DL (6.4-8.2) Albumin 3.7 G/DL (3.4-5.0) Height (Feet): 5 Height (Inches): 8.00 Weight (Pounds): 150 General Appearance: WD/WN, no apparent distress, alert Cardiovascular: normal rate Respiratory/Chest: normal breath sounds, no respiratory distress Abdominal Exam: normal bowel sounds, non tender, soft Extremities: normal range of motion, non-tender Genna Wen N.P. May 18, 2017 10:50
[2017-05-18] MEDS ORDERED: Bisacodyl EC 5mg tab ORAL PRN (11:00)
--- NOTE | 2017-05-18 11:14 | Infectious Diseases Prog Note ---
Assessment/Plan Assessment/Plan Abx: Levaquin 05/15-05/16 Assesment: R flank pain- chronic perinephric stranding argues agains acute pyelonephritis- ?musculoskeletal vs GI related- No evidnce of infectious process at this point. -CT abd/p: Bilateral perinephric fat stranding, appearing unchanged from prior study of 2006 and presumably baseline for this patient. Bilateral renal calcifications are most likely arterial. No acute abnormality. Pancreatic calcifications, more abundant than on the prior exam. Most likely on the basis of progressive chronic calcifying pancreatitis, but consider pancreatic protocol CT or MRI to rule out underlying neoplasm. Prior right hemicolectomy. Colonic diverticulosis. No evidence of diverticulitis. 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 Incidental findings as noted, including basilar bronchial wall thickening, degenerative changes of the lumbar spine, pacemaker, accessory splenule -xray R hip: No acute fractures. No dislocations. There is mild degenerative joint space narrowing of the hip joint. Clips are seen in the right proximal thigh medially. This there are vascular calcifications Afebrile, no leukocytosis NOA with urinary retention -u/a negative, no signs of infection -Renal us: Mildly echogenic kidneys with thinned cortex, consistent with medical renal disease. Note that the cortical thinning is also described on recent CT scan. Negative for hydronephrosis. Distended bladder. Incidental finding right lower pole renal cyst. DM2, HTN, s/p PPM, colon polyps s/p hemicolectomy Plan -Continue to monitor off abx -S/p 2 doses of Levaquin -Monitor CBC/BMP, temperatures -GI Following Thank you for this consultation. Will continue to follow along with you. Discussed with RN. Subjective Allergies: Coded Allergies: AMOXICILLIN (Verified Allergy, Unknown, 05/15/17) Subjective afebrile no leukocytosis off abx Objective Vital Signs Last 24 Hour Vital Signs Date Time Temp Pulse Resp B/P (MAP) Pulse Ox O2 Delivery O2 Flow Rate FiO2 05/18/17 09:49 135/74 05/18/17 08:00 98.5 103 18 135/74 97 05/18/17 04:00 98.1 98 18 88/58 97 05/18/17 00:00 98.3 104 18 109/52 94 05/17/17 20:13 115/68 05/17/17 20:00 98.7 84 18 115/68 Room Air 05/17/17 16:00 97.9 80 17 107/66 05/17/17 12:00 97.2 97 20 153/76 Height (Feet): 5 Height (Inches): 8.00 Weight (Pounds): 150 Objective General Appearance: alert non-toxic, mild distress HEENT:normocephalic, atraumatic bilateral eye PERRL, normal pharynx Neck: full range of motion, supple/symm/no masses Respiratory: chest non-tender, lungs clear, normal breath sounds, speaking full sentences Cardiovascular : regular rate, rhythm, no edema Gastrointestinal: normal bowel sounds, non tender, soft, non-distended, no guarding, no rebound. TTP in R waist area Genitourinary: no CVAT Musculoskeletal: back normal, gait/station normal, normal range of motion, non- tender, neg leg raise test b/l Skin: normal color, no rash, warm/dry, well hydrated Laboratory Tests Test 05/18/17 05:00 05/18/17 05:15 05/18/17 10:50 Amylase Level 101 U/L (25-115) White Blood Count 7.7 K/UL (4.8-10.8) Red Blood Count 3.86 M/UL (4.20-5.40) L Hemoglobin 13.0 G/DL (12.0-16.0) Hematocrit 39.3 % (37.0-47.0) Mean Corpuscular Volume 102 FL (80-99) H Mean Corpuscular Hemoglobin 33.7 PG (27.0-31.0) H Mean Corpuscular Hemoglobin Concent 33.0 G/DL (32.0-36.0) Red Cell Distribution Width 13.5 % (11.6-14.8) Platelet Count 229 K/UL (150-450) Mean Platelet Volume 7.0 FL (6.5-10.1) Neutrophils (%) (Auto) 65.6 % (45.0-75.0) Lymphocytes (%) (Auto) 20.3 % (20.0-45.0) Monocytes (%) (Auto) 11.6 % (1.0-10.0) H Eosinophils (%) (Auto) 1.7 % (0.0-3.0) Basophils (%) (Auto) 0.8 % (0.0-2.0) Sodium Level 136 MMOL/L (136-145) Potassium Level 3.7 MMOL/L (3.5-5.1) Chloride Level 98 MMOL/L (98-107) Carbon Dioxide Level 29 MMOL/L (21-32) Anion Gap 9 mmol/L (5-15) Blood Urea Nitrogen 28 mg/dL (7-18) H Creatinine 1.8 MG/DL (0.55-1.30) H Estimat Glomerular Filtration Rate mL/min (>60) Glucose Level 148 MG/DL (74-106) H Calcium Level 9.9 MG/DL (8.5-10.1) Phosphorus Level 4.2 MG/DL (2.5-4.9) Magnesium Level 2.2 MG/DL (1.8-2.4) Total Bilirubin 1.0 MG/DL (0.2-1.0) Direct Bilirubin 0.3 MG/DL (0.0-0.3) Aspartate Amino Transf (AST/SGOT) 17 U/L (15-37) Alanine Aminotransferase (ALT/SGPT) 17 U/L (12-78) Alkaline Phosphatase 59 U/L (46-116) Total Protein 6.6 G/DL (6.4-8.2) Albumin 3.7 G/DL (3.4-5.0) Lactic Acid Level Pending Current Medications Medications (Trade) Dose Ordered Sig/Zachary Route PRN Reason Start Time Stop Time Status Last Admin Dose Admin Acetaminophen (Tylenol) 650 mg Q4H PRN ORAL Mild Pain/Temp > 100.5 05/15/17 23:45 06/14/17 23:44 05/16/17 15:35 Acetaminophen/ Hydrocodone Bitart ([place] 5/325) 1 tab Q4H PRN ORAL Moderate Pain (Pain Scale 4-6) 05/16/17 15:30 05/23/17 15:29 05/18/17 09:46 Aspirin (Ecotrin) 81 mg DAILY ORAL 05/18/17 09:00 06/17/17 08:59 05/18/17 09:45 Bisacodyl (Dulcolax) 5 mg DAILYPRN PRN ORAL Constipation 05/18/17 11:00 06/17/17 10:59 Clopidogrel Bisulfate (Plavix) 75 mg DAILY ORAL 05/16/17 09:00 06/15/17 08:59 05/18/17 09:27 Cyanocobalamin (Vitamin B12) 1,000 mcg DAILY SUBQ 05/17/17 14:30 06/16/17 14:29 05/18/17 09:28 Dextrose (Dextrose 50%) STAT PRN IV Hypoglycemia 05/15/17 23:45 06/14/17 23:44 Diazepam (Valium) 2 mg TID PRN ORAL For Anxiety 05/15/17 23:15 05/22/17 23:14 Diphenhydramine HCl (Benadryl) 25 mg Q6H PRN ORAL Itching 05/16/17 00:00 06/15/17 00:00 Escitalopram Oxalate (Lexapro) 10 mg QHS ORAL 05/16/17 21:00 06/15/17 20:59 05/17/17 20:35 Furosemide (Lasix) 20 mg DAILY ORAL 05/18/17 09:00 06/17/17 08:59 05/18/17 09:45 Insulin Aspart (NovoLOG) BEFORE MEALS AND HS SUBQ 05/16/17 06:30 06/15/17 06:29 05/18/17 07:04 Lansoprazole (Prevacid) 30 mg DAILY ORAL 05/16/17 15:45 06/15/17 15:44 05/18/17 09:27 Losartan Potassium (Cozaar) 25 mg EVERY 12 HOURS ORAL 05/16/17 21:00 06/15/17 20:59 05/18/17 09:49 Morphine Sulfate (Morphine Sulfate) 2 mg Q6H PRN IVP Severe Pain (Scale 7-10) 05/16/17 15:30 05/23/17 15:29 05/18/17 05:05 Polyethylene Glycol (Miralax) 17 gm BEDTIME ORAL 05/17/17 21:00 06/16/17 20:59 05/18/17 04:14 Tamsulosin HCl (Flomax) 0.4 mg BEDTIME ORAL 05/17/17 21:00 06/16/17 20:59 05/17/17 20:30 Amara Valadez M.D. May 18, 2017 11:14
[2017-05-18 11:57] VITALS: BP 98/60
[2017-05-18] MEDS ORDERED: NORCO 5-325 TA1 EACH ORAL (13:33)
[2017-05-18] MEDS ORDERED: NS 500ML ONE (13:51)
[2017-05-18] MEDS ORDERED: Tubing IV Secondary IV ONE (13:51)
--- NOTE | 2017-05-18 14:24 | Nephrology Progress Note ---
Assessment/Plan Problem List: (1) Renal insufficiency Assessment Renal failure- ( bactrim- DM , HTN .... cr 1.8 Ua negative DM Pacer CABGs MV surgery Over weight here with left flank pain ? acute papillary necrosis ?? Anemia Plan Plan: iv iron- B12- Mag supp. Flomax UA negative Urine c/s P Optimize cardiac status 2 D echo Pending Kidney JACQUELINE: Mildly echogenic kidneys with thinned cortex, consistent with medical renal disease. Note that the cortical thinning is also described on recent CT scan. Negative for hydronephrosis Distended bladder avoid nephrotoxics Anemia james agree with Dc and follow up as OP Subjective ROS Limited/Unobtainable: No Constitutional: Reports: malaise, other - seen at 11 05/18/17 Objective Objective Last 24 Hour Vital Signs Date Time Temp Pulse Resp B/P (MAP) Pulse Ox O2 Delivery O2 Flow Rate FiO2 05/18/17 11:57 98.3 100 18 98/60 96 Room Air 05/18/17 09:49 135/74 05/18/17 08:00 98.5 103 18 135/74 97 05/18/17 04:00 98.1 98 18 88/58 97 05/18/17 00:00 98.3 104 18 109/52 94 05/17/17 20:13 115/68 05/17/17 20:00 98.7 84 18 115/68 Room Air 05/17/17 16:00 97.9 80 17 107/66 Laboratory Tests 05/18/17 05:00: Amylase Level 101 05/18/17 05:15: White Blood Count 7.7, Red Blood Count 3.86L, Hemoglobin 13.0, Hematocrit 39.3, Mean Corpuscular Volume 102H, Mean Corpuscular Hemoglobin 33.7H, Mean Corpuscular Hemoglobin Concent 33.0, Red Cell Distribution Width 13.5, Platelet Count 229, Mean Platelet Volume 7.0, Neutrophils (%) (Auto) 65.6, Lymphocytes (% ) (Auto) 20.3, Monocytes (%) (Auto) 11.6H, Eosinophils (%) (Auto) 1.7, Basophils (%) (Auto) 0.8, Sodium Level 136, Potassium Level 3.7, Chloride Level 98, Carbon Dioxide Level 29, Anion Gap 9, Blood Urea Nitrogen 28H, Creatinine 1.8H, Estimat Glomerular Filtration Rate , Glucose Level 148H, Calcium Level 9.9 , Phosphorus Level 4.2, Magnesium Level 2.2, Total Bilirubin 1.0, Direct Bilirubin 0.3, Aspartate Amino Transf (AST/SGOT) 17, Alanine Aminotransferase ( ALT/SGPT) 17, Alkaline Phosphatase 59, Total Protein 6.6, Albumin 3.7 05/18/17 10:50: Lactic Acid Level 1.20 Height (Feet): 5 Height (Inches): 8.00 Weight (Pounds): 150 General Appearance: no apparent distress Objective no change DIPIKA GARCIA May 18, 2017 14:24
--- NOTE | 2017-05-20 09:33 | Discharge Summary ---
Discharge Summary Hospital Course Date of Admission May 15, 2017 at 18:38 Date of Discharge May 18, 2017 at 13:52 Admitting Diagnosis pyelonephritis LEXI Rhodes is a 72 year old female who was admitted on May 15, 2017 at 18:38 for Pyelonephritis Hospital Course [id number] Discharge Discharge Disposition Patient was discharged to Home with Home Health(06) Discharge Diagnoses: Juliana Andres NP May 20, 2017 09:33
--- NOTE | 2017-05-21 00:45 | Discharge Summary 2 SIG ---
DATE OF ADMISSION: 05/15/2017 DATE OF DISCHARGE: 05/18/2017 CONSULTANTS: 1. Denver Molina M.D. 2. Amara Valadez M.D. 3. Deejay Rodriguez M.D. 4. Duong Lobo M.D. 5. Poncho Messina M.D. 6. Roddy Mario M.D. BRIEF HOSPITAL COURSE: The patient is a 72-year-old female. The patient presented with increasing pain in the abdomen localizing to the flanks. Denied any fever or chills. Denied nausea or vomiting. Pain is sharp 10/10. No aggravating or relieving factors. On evaluation at ED, laboratories showed no leukocytosis. Creatinine was elevated to 1.7. LFTs were normal. The patient was unable to give urine. Jiménez catheter was inserted, however, there was no urine output. CAT scan of the abdomen showed bilateral perinephric stranding consistent with pyelonephritis. There was colonic diverticulosis with findings of pancreatic calcifications. She continued to have pain and was started on IV fluids and antibiotics. She was admitted for workup of abdominal pain with consideration of possible ischemic mesentery or diverticulitis. Kidney function was elevated. Nephrology evaluation was done. Kidney ultrasound showed echogenic kidneys consistent with medical renal disease, negative for hydronephrosis, and incidental finding of right renal cyst. There was no evidence of kidney stone, hydronephrosis, or other source of pain stemming from the urinary tract. She was seen by Infectious Disease specialist and was given two doses of Levaquin. The patient was afebrile with no leukocytosis and was monitored off of antibiotic treatment. UA with no signs of infection. She had an echocardiogram done, which showed ejection fraction of 60% with mild aortic regurgitation, trace mitral regurgitation, mild tricuspid regurgitation, moderate pulmonary hypertension, and right ventricular pressure of 45. Dr. Messina was consulted. The patient has an atypical presentation for an ischemic bowel, but is at risk and needs to be followed up as outpatient. She was offered further workup for chronic vascular etiology, but she stated she is already being followed by the vascular surgeon periodically. She was advised to continue with medical management including antiplatelet and statin therapy and was advised to stop smoking. She had an anemia workup done and was noted to be iron deficient and was given Venofer x1. Vitamin B12 and folate were within normal limits. She was given Flomax and was counseled to avoid nephrotoxics. She was eventually cleared for discharge home with home health. FINAL DIAGNOSES: 1. Acute on chronic abdominal pain, possibly ischemic mesentery, possible diverticulitis. 2. Acute on chronic renal failure. 3. Anemia. 4. Smoker with more than 26-hjes-wun-year. 5. Diabetes type 2, fairly controlled. A1c of 7.5. 6. Hyperlipidemia. 7. Hypertension. 8. Coronary artery disease. 9. Peripheral vascular disease. 10. Pacemaker implantation. 11. Iron deficiency anemia. 12. Pyelonephritis. 13. History of colectomy. DISCHARGE DISPOSITION: The patient was discharged home with [facility]. DISCHARGE MEDICATIONS: Refer to medication List. FOLLOWUP: The patient was advised to follow up with PMD and vascular surgeon as an outpatient. Adri Castaneda M.D. I have been assigned to dictate discharge summary on this account and I was not involved in the patient's management. Juliana Andres N.P. DR: MADIHA JOB#: [id number] CC: JOHN
--- NOTE | 2017-05-21 00:45 | Consultation ---
DATE OF CONSULTATION: 05/18/2017 CARDIOLOGY CONSULTATION REFERRING PHYSICIAN: Adri Castaneda M.D. REASON FOR CONSULTATION: Management of coronary artery disease in a patient with history of mitral valve replacement/repair. HISTORY OF PRESENT ILLNESS: The patient is a very pleasant 72-year-old female, who presents to the hospital complaining of back pain. The pain was described as sharp, 10/10, localized to the right lower buttock radiating to the front. At the time of arrival to the hospital, blood pressure was 154/72 mmHg, respiration of 20, pulse of 87, and she was saturating at 97% on room air. Initial laboratory finding showed elevated proBNP of 982. Cardiology consultation was made for evaluation of possible heart failure in the patient with history of coronary artery disease status post coronary artery bypass graft surgery as well as history of mitral valve replacement. At the time of my evaluation, the patient did not have any chest pain or shortness of breath. She is followed by her network field engineer, Dr. Marlo Holloway at [facility] on frequent basis. PAST MEDICAL HISTORY: 1. Diabetes mellitus. 2. Hypertension. 3. Chronic kidney disease. 4. History of pacemaker implantation. 5. History of coronary artery disease status post coronary artery bypass graft surgery. 6. History of mitral valve replacement/repair. PAST SURGICAL HISTORY: Pacemaker implantation, mitral valve replacement/repair by Dr. Calabrese and possible coronary artery bypass graft surgery by Dr. Calabrese at [facility]. MEDICATIONS: List of medication includes aspirin 325 mg p.o. daily, Plavix 75 mg p.o. daily, Valium 2 mg p.o. three times a day p.r.n. anxiety, Benadryl 25 mg p.o. q.12 h., Lexapro 10 mg p.o. daily, Lasix 40 mg p.o. daily, Amaryl 1 mg q.a.c. breakfast, [place] 5/325 mg one tablet q.8 h. p.r.n. pain, metformin 1000 mg p.o. twice daily, potassium chloride 10 mEq p.o. daily, prednisone 20 mg p.o. q.12 h., Zocor 20 mg p.o. at bedtime, Carafate 1 g p.o. twice daily, Bactrim 400/80 mg one tablet twice daily for 7 days and Diovan hydrochlorothiazide 160-12.5 mg one tablet daily. ALLERGIES: Amoxicillin. SOCIAL HISTORY: Denies any use of tobacco, alcohol, or illicit drug use. FAMILY HISTORY: No premature coronary artery disease in first-degree relatives. REVIEW OF SYSTEMS: HEENT: Denies any headache, diplopia, or blurred vision. CONSTITUTIONAL: Denies any fever, chills, night sweats, or weight loss. CARDIOVASCULAR: Denies any chest pain, shortness breath, PND, or orthopnea. She has been complaining of bilateral lower extremity edema. PULMONARY: Denies any cough, hemoptysis, or wheezing. GASTROINTESTINAL: Denies any nausea, vomiting, diarrhea, constipation, abdominal pain, or GI bleed. GENITOURINARY: Denies any hematuria, dysuria, or incontinence. NEUROLOGY: Denies any motor dysfunction, sensory deficit, or altered speech. MUSCULOSKELETAL: Complaining of back pain radiating down the right lower extremity. PHYSICAL EXAMINATION: GENERAL: The patient is a very pleasant 72-year-old female, in no apparent respiratory distress, alert and oriented x4. VITAL SIGNS: Blood pressure at time of my evaluation was 154/72, pulse of 87, respirations of 20, O2 saturation 97% on room air, and temperature 97.8 degrees Fahrenheit. HEENT: Atraumatic and normocephalic. Anicteric. Pupils are equal, round, and reactive to light and accommodation. Extraocular muscles intact. NECK: JVP less than 5 centimeter. No carotid bruit. Carotid upstrokes 2+ bilaterally. CHEST: Presence of pacemaker pocket over the left pectoral area. CARDIOVASCULAR: Normal S1 and S2. Regular rate and rhythm. No murmurs, gallops, or rubs. PMI is at fourth intercostal space in the midclavicular line. LUNGS: Clear to auscultation bilaterally. ABDOMEN: Soft, nontender, and nondistended. No hepatosplenomegaly. Positive bowel sounds. EXTREMITIES: No evidence of edema, clubbing, or cyanosis. LABORATORY AND DIAGNOSTIC DATA: Sodium was 142, potassium is 4.4, chloride 105, bicarbonate 27, BUN of 20, creatinine 1.7 and glucose 157. Hemoglobin A1c was 7.5. Calcium is 9.4. ProBNP was 982. Troponin I was 0.005. Triglyceride 162, total cholesterol 164, LDL over 93, and HDL of 43. A 2D echocardiography was done, this shows normal left ventricular systolic function with LVEF approximately 62%. There is bioprosthetic mitral valve. LV diastolic function could not be assessed due to presence of bioprosthetic valve, normal right atrial pressure. ASSESSMENT AND PLAN: The patient is a very unfortunate 72-year-old female, seen in Cardiology consultation at request of Dr. Castaneda. 1. Bioprosthetic mitral valve with normal function on 2D echocardiography. 2. Normal left ventricular systolic function with left ventricular ejection fraction approximately 55%. 3. Diabetes mellitus. Consider aspirin 81 mg and statins. 4. History of hypertension. Agree with combination of valsartan and hydrochlorothiazide. Discontinue furosemide as the patient's renal function has deteriorated. Consider discontinuation of metformin as well. 5. Status post pacemaker implantation. I would like to obtain chest x-ray to assess pacemaker lead position. I would like to thank, Dr. Castaneda, for allowing me to participate in care of this patient. Duong Lobo M.D. DR: FRANCES JOB#: [id number] CC:
== END 2017-05-18 13:52 | disposition home health service (06) | DRG 391 ==
LOC: EDBD 14:05 → EMR 14:30 → 3E 18:38 → EDBEDREQ 21:01
DX: K57.92 Diverticulitis of intestine, part unspecified, without perforation or abscess without bleeding (principal); K55.059 Acute (reversible) ischemia of intestine, part and extent unspecified; N17.9 Acute kidney failure, unspecified; E87.5 Hyperkalemia; E11.51 Type 2 diabetes mellitus with diabetic peripheral angiopathy without gangrene; N12 Tubulo-interstitial nephritis, not specified as acute or chronic; I25.10 Atherosclerotic heart disease of native coronary artery without angina pectoris; I12.9 Hypertensive chronic kidney disease with stage 1 through stage 4 chronic kidney disease, or unspecified chronic kidney disease; N18.9 Chronic kidney disease, unspecified; R33.9 Retention of urine, unspecified; F17.210 Nicotine dependence, cigarettes, uncomplicated; K59.00 Constipation, unspecified; D50.9 Iron deficiency anemia, unspecified; Z95.0 Presence of cardiac pacemaker; Z95.1 Presence of aortocoronary bypass graft; Z90.49 Acquired absence of other specified parts of digestive tract; Z86.010 Personal history of colon polyps; Z79.82 Long term (current) use of aspirin; E66.3 Overweight; Z68.22 Body mass index [BMI] 22.0-22.9, adult; Z95.2 Presence of prosthetic heart valve
CPT/HCPCS: 36415; 74176; 76775; 80048; 80053; 80061; 80076; 81001; 82150; 82550; 82607; 82728; 82746; 82962; 82977; 83036; 83540; 83550; 83605; 83690; 83735; 83880; 84100; 84300; 84443; 84484; 84550; 85025; 86140; 93306; 99285; J1815